=== PATIENT | female | born 1970 | race Caucasian/White ===

== ENCOUNTER → 2017-07-07 08:26 | Outpatient (CLI) | payer OTHER, SELFPAY ==
[2017-07-07 10:44] LABS: Albumin, Serum 3.8 g/dL (3.4-5.0); BUN 15 mg/dL (7-18); BUN/Creat Ratio 16.3 RATIO (10-20); Calcium,Total 8.6 mg/dL (8.5-10.1); Chloride 105 mmol/L (98-107); Creatinine, Serum 0.92 mg/dL (0.55-1.02); EST Glomerular Filtration Rate 70 mL/min (>60); Est Glom Filt Rate - Afr Amer 84 mL/min (>60); Glucose 84 mg/dL (70-110); Phosphorus 2.3 mg/dL (2.5-4.9); Potassium 4.2 mmol/L (3.5-5.1); Sodium Level 139 mmol/L (136-145)
[2017-07-07 10:49] LABS: Protein, Urine (Random) < 6.0 mg/dL (<11.9)
== END ==
PROVIDERS: Family Provider Family Medicine; PCP Family Medicine; Visit Provider Internal Medicine Nephrology
DX: N18.2 Chronic kidney disease, stage 2 (mild) (principal)
CPT/HCPCS: 36415; 80069; 82570; 84156

== ENCOUNTER → 2017-09-25 09:40 | Outpatient (CLI) | payer OTHER, SELFPAY ==
--- NOTE | 2017-09-25 09:43 | BI_ITS ---
MAMMOGRAPHY - BILATERAL DIAGNOSTIC REASON FOR EXAM: Female, 47 years old. 2 week history of the right breast lump and tenderness at the 6:00 position of the breast. PERTINENT HISTORY: Non-contributory. TECHNIQUE: Digital bilateral breast tenisha (3D mammographic acquisition) in the CC and MLO projections. 2-D mediolateral oblique (MLO) and craniocaudad (CC) views of both breasts were obtained. CAD: Full Field Digital Mammography with Computer Added Detection was performed. Compression spot views of the right breast were obtained as well. COMPARISON: Comparison is made with prior mammogram dated July 14, 2016 and June 26, 2015. FINDINGS: Breast Composition: The breasts are extremely dense, which lowers the sensitivity of mammography. Several well-defined nodular densities are once again seen in both breasts. These have decreased in size. The palpable abnormality in the right breast corresponds to a 1.2 cm x 1.5 cm well-defined nodular density. Correlation with ultrasound is recommended. No other significant abnormalities are identified. BI/DIAG MAMM W/CAD, BILAT IMPRESSION: Persistent well-defined bilateral breast nodules as described. Correlation with ultrasound of the right breast is recommended. ASSESSMENT CATEGORY: BIRADS Category 0: Incomplete. Need additional imaging evaluation. A letter regarding these results will be sent to the patient by the facility within 30 days. Approximately 10% of breast cancers are not detected by mammography. A normal mammogram should not delay biopsy of a clinically suspicious abnormality. Electronically Signed: Chito Gutierrez MD at 11:11 EDT Tel [phone], Service support ,
--- NOTE | 2017-09-25 09:44 | US_ITS ---
STUDY: ULTRASOUND BREAST - RIGHT REASON FOR EXAM: Female, 47 years old. 2 week history of right breast lump. TECHNIQUE: Axial and longitudinal images of the RIGHT breast were performed with a high resolution ultrasound transducer. COMPARISON: Comparison is made with prior mammogram dated September 25, 2017 and prior sonogram of the right breast dated January 16, 2017. FINDINGS: RIGHT Breast: 2 cysts are seen at the 7:00 position of breast adjacent to the nipple. The larger measures 1.2 sides by 1.1 cm x 1 cm. This has decreased in size as compared to prior study. US/Breast Limited Unilateral IMPRESSION: Interval decrease in size, right periareolar cysts. ASSESSMENT CATEGORY: BIRADS Category 2: Benign. A letter regarding these results will be sent to the patient by the facility within 30 days. Electronically Signed: Chito Gutierrez MD at 11:09 EDT Tel [phone], Service support ,
== END ==
PROVIDERS: Family Provider Family Medicine; PCP Family Medicine; Visit Provider Obstetrics & Gynecology Gynecology
DX: N63.0 Unspecified lump in unspecified breast (principal)
CPT/HCPCS: 76642; 77062; 77066; G0279

== ENCOUNTER → 2018-06-21 11:26 | Outpatient (CLI) | payer OTHER, SELFPAY ==
[2017-09-29 13:53] VITALS: BMI 21.1
[2018-06-21 12:57] LABS: Anion Gap 8 (5-15); BUN 13 mg/dL (7-18); BUN/Creat Ratio 14.3 RATIO (10-20); Calcium,Total 8.3 mg/dL (8.5-10.1); Chloride 103 mmol/L (98-107); Creatinine, Serum 0.91 mg/dL (0.55-1.02); EST Glomerular Filtration Rate 70 mL/min (>60); Est Glom Filt Rate - Afr Amer 85 mL/min (>60); Glucose 82 mg/dL (74-106); Sodium Level 140 mmol/L (136-145)
[2018-06-21 13:16] LABS: Microalbumin,Random Urine < 5.0 mg/L (NO RANGE EST.)
== END ==
PROVIDERS: Family Provider Family Medicine; PCP Family Medicine; Referring Provider Internal Medicine Nephrology; Visit Provider Internal Medicine Nephrology
DX: N18.2 Chronic kidney disease, stage 2 (mild) (principal)
CPT/HCPCS: 36415; 80048; 82043; 82570

== ENCOUNTER → 2019-01-15 16:57 | Outpatient (CLI) | payer OTHER, SELFPAY ==
[2017-09-29 13:53] VITALS: BMI 21.1
--- NOTE | 2019-01-15 17:00 | RAD_ITS ---
STUDY: X-RAY - LEFT KNEE REASON FOR EXAM: Female, 48 years old. Pain TECHNIQUE: 4 view(s) of the knee. COMPARISON: None. FINDINGS: There is no evidence of fracture or dislocation. Mild tricompartmental degenerative changes are present. Chondrocalcinosis is present. There are no radiodense foreign bodies. RAD/Knee 4 or More Views IMPRESSION: No fracture or dislocation. Mild tricompartmental degenerative changes. Chondrocalcinosis. Electronically Signed: Sheldon Rajput, at 17:15 EDT Tel , Service support ,
== END ==
PROVIDERS: Family Provider Family Medicine; PCP Family Medicine; Referring Provider Family Medicine; Visit Provider Family Medicine
DX: M25.562 Pain in left knee (principal)
CPT/HCPCS: 73564

== ENCOUNTER → 2019-06-17 08:14 | Outpatient (CLI) | payer OTHER, SELFPAY ==
[2017-09-29 13:53] VITALS: BMI 21.1
[2019-06-17 10:15] LABS: Hematocrit 40.1 % (37-47); Hemoglobin 12.6 g/dL (12.0-15.0); Mean Corp Hgb Conc 31.4 g/dL (32-36); Mean Corpuscular Hgb 28.2 pg (27.0-32.0); Mean Corpuscular Volume 89.7 fL (81-99); Mean Platelet Vol. 11.1 fl (6.2-12.0); Platelet Count 205 K/mm3 (150-450); RBC Distribution Width CV 12.8 % (11.6-14.6); RBC Distribution Width SD 41.9 fl (35.1-43.9); Red Blood Count 4.47 M/mm3 (4.2-5.4); White Blood Count 4.8 K/mm3 (4.4-11.0)
[2019-06-17 10:28] LABS: Creatinine, Urine (random) < 13.00 mg/dL (NO RANGE EST.); Protein, Urine (Random) < 6.0 mg/dL (<11.9)
[2019-06-17 10:37] LABS: Albumin, Serum 3.5 g/dL (3.2-5.0); BUN 14 mg/dL (7-18); BUN/Creat Ratio 14.4 RATIO (10-20); Calcium,Total 8.2 mg/dL (8.5-10.1); Chloride 106 mmol/L (98-107); Creatinine, Serum 0.98 mg/dL (0.55-1.02); EST Glomerular Filtration Rate 65 mL/min (>60); Est Glom Filt Rate - Afr Amer 78 mL/min (>60); Glucose 82 mg/dL (74-106); Potassium 3.9 mmol/L (3.5-5.1); Sodium Level 140 mmol/L (136-145)
[2019-06-17 10:39] LABS: PTHIN 45.4 pg/mL (18.4-80.1)
[2019-06-17 10:42] LABS: Vitamin D,25 Hydroxy 22.8 ng/mL (29.95-100.01)
== END ==
PROVIDERS: Family Provider Family Medicine; PCP Family Medicine; Referring Provider Physician Assistant Medical; Visit Provider Physician Assistant Medical
DX: N18.2 Chronic kidney disease, stage 2 (mild) (principal); D63.1 Anemia in chronic kidney disease
CPT/HCPCS: 36415; 80069; 82306; 82570; 83970; 84156; 85027

== ENCOUNTER → 2019-06-18 06:58 | Outpatient (CLI) | payer OTHER, SELFPAY ==
--- NOTE | 2019-06-18 07:00 | BI_ITS ---
MAMMOGRAPHY - BILATERAL SCREENING 3-D TOMOSYNTHESIS REASON FOR EXAM: Female, 48 years old. BILAT SCREENING - NO FAM HX - BILAT CYST ASPIRATIONS 2018 AFTER LAST MAMM OF 09/2017 PERTINENT HISTORY: No significant family history. TECHNIQUE: 2-D mammograms and 3-D Tomosynthesis of the breast (s) were performed. CAD was performed. COMPARISON: September 25, 2017. FINDINGS: The breast composition is heterogeneously dense that can obscure small breast masses. There is a 2.1 cm, ovoid mass within the upper lateral right breast centered 4.6 cm from the nipple base on MLO views and centered 3.5 cm from the nipple base on MLO views. The margins appear well-defined except for the obscured by adjacent fibroglandular tissue. Immediately deep to this dominant finding is a satellite nodule measuring 6.6 mm in maximum dimension. Recommend characterization of both of these right breast findings with sonography. The left breast appears stable without evidence of malignancy. There are no suspicious microcalcifications. BI/SCREEN MAMM (CAD) W/[place] BILAT IMPRESSION: Right breast masses/nodules as above. ASSESSMENT CATEGORY: BIRADS Category 0: Incomplete. Need additional imaging evaluation as above. A letter regarding these results will be sent to the patient by the facility within 30 days. FOLLOW UP RECOMMENDATION: Ultrasound Recommended. (I) Approximately 10% of breast cancers are not detected by mammography. A normal mammogram should not delay biopsy of a clinically suspicious abnormality. Electronically Signed: Chester Elliott MD at 9:34 EST , Service support ,
== END ==
PROVIDERS: Family Provider Family Medicine; PCP Family Medicine; Referring Provider Obstetrics & Gynecology Gynecology; Visit Provider Obstetrics & Gynecology Gynecology
DX: Z12.31 Encounter for screening mammogram for malignant neoplasm of breast (principal)
CPT/HCPCS: 77063; 77067

== ENCOUNTER → 2019-06-21 07:55 | Outpatient (CLI) | payer OTHER, SELFPAY ==
--- NOTE | 2019-06-21 08:01 | US_ITS ---
STUDY: ULTRASOUND BREAST - RIGHT REASON FOR EXAM: Female, 48 years old. Abnormal mammography. 2.1 cm ovoid mass within the upper lateral right breast and 6.6 mm maximum dimension satellite nodule identified on bilateral mammography dated June 18, 2019. TECHNIQUE: Axial and longitudinal images of the RIGHT breast were performed with a high resolution ultrasound transducer. # OF IMAGES: 24 COMPARISON: None. FINDINGS: RIGHT Breast: There is an anechoic focus measuring 1.9 x 1.8 x 1.3 cm in the 10:00 right breast position identified 5 cm from the nipple base. This finding is wider than it is tall. The margins appear well-defined. There is enhanced true transmission without posterior shadowing. This finding probably represents the mammographically evident abnormality. In the 11:00 position of the right breast 5 cm from the nipple there is a 1.2 x 1.1 x 0.7 cm ovoid, hypoechoic solid mass with no enhanced through transmission and no posterior shadowing. This finding is avascular. The margins appear well-defined. This finding is wider than it is tall. There is a 1.5 x 1.5 x 0.7 cm anechoic well-defined focus in the right breast 1:00 position 1 cm from the nipple. There is enhanced through transmission. There is no posterior shadowing. In the right breast 10:00 position identified 7 cm from the nipple there is a 0.7 x 0.6 x 0.4 cm hypoechoic solid focus with posterior shadowing. The margins appear somewhat microlobulated. This lesion is as wide as it is tall. US/Breast Complete Unilateral IMPRESSION: Prominent simple cysts within the right breast 10:00 position 5 cm from the nipple and 1:00 position 1 cm from the nipple. Probably benign fibroadenoma within the 11:00 position right breast 5 cm from the nipple. Suspicious subcentimeter finding in the right breast 10:00 position 7 cm from the nipple. Recommend further evaluation with ultrasound-guided core biopsy. ASSESSMENT CATEGORY: BIRADS Category 4A: Low suspicion for malignancy. A letter regarding these results will be sent to the patient by the facility within 30 days. Electronically Signed: Chester Elliott MD at 16:16 EST , Service support ,
== END ==
PROVIDERS: Family Provider Family Medicine; PCP Family Medicine; Referring Provider Obstetrics & Gynecology Gynecology; Visit Provider Obstetrics & Gynecology Gynecology
DX: R92.8 Other abnormal and inconclusive findings on diagnostic imaging of breast (principal)
CPT/HCPCS: 76641

== ENCOUNTER → 2019-07-01 12:17 | Outpatient (CLI) | payer OTHER, SELFPAY ==
--- NOTE | 2019-07-01 | IMM_PTH ---
PATIENT: YOSELIN BAILEY LOC: [facility] U#:[id number] AGE/SX: 54/F ROOM: RE07/01/[address]: Dr. Carlos Enrique Dasilva MD : 1970 BED: DIS: SPEC #: [id number] RECD: 07/02/19 12:56 STATUS: ZAINA REQ #: [id number] JANEL: 07/01/19 00:[address]: Carlos Enrique Dasilva DEPT: IMMUNOHISTOCHEMISTRY RECD BY: Magi Antonio ENTERED: 07/02/19 12:56 SP TYPE: IMMUNO OTHR DR: Dr. Garcia Tripp MD Tissues: Right breast, NOS Procedures: Calponin-1(initial) P40 (add) PHYSICIAN & INSTITUTION [facility] [id number] SPECIMEN INFORMATION: Tissue Source: Right breast 11 o'clock +5 Clinical Info: Abnormal breast ultrasound Specimen Number: [id number] CPT code: 25793, 47458 METHODOLOGY: Deparaffinized sections of prefer/formalin-fixed tissue or PAP/DQ stained slides are incubated with monoclonal/polyclonal antibodies/oligonucleotide probes. Localization is made via biotin free immunoperoxidase method. Appropriate controls are performed and reacted as expected. Results on target cell population are indicated in the following table: RESULTS: ANTIBODY / CLONE RESULT P40 (BC28) positive Calponin-1 (YE067M) positive These tests were developed and their performance characteristics determined by [facility]. They may not have been cleared or approved by the U.S. Food and Drug Administration. The FDA has determined that such clearance or approval is not necessary. The above immunohistochemical/dualISH markers are ordered and reviewed by the Pathologist. INTERPRETATION: Right breast 11 o'clock +5, core biopsy: Negative for malignancy. SJ:bettie 07/03/19
[2019-07-01 07:54] VITALS: BMI 21.1
--- NOTE | 2019-07-01 10:19 | BRBX_PTH ---
PATIENT: YOSELIN BAILEY LOC: [facility] U#:[id number] AGE/SX: 54/F ROOM: RE07/01/[address]: Dr. Carlos Enrique Dasilva MD : 1970 BED: DIS: SPEC #: [id number] RECD: 07/01/19 11:53 STATUS: ZAINA REAGAN #: [id number] JANEL: 07/01/19 10:[address]: Carlos Enrique Dasilva DEPT: SURGICAL PATHOLOGY RECD BY: Michael Morales ENTERED: 07/01/19 13:03 SP TYPE: BREAST BX OTHR DR: Dr. Garcia Tripp MD Tissues: Right breast, NOS Procedures: Surgery Specimen Level IV HEADER OPERATION: Right breast core biopsy PRE-OP DIAGNOSIS: Abnormal breast ultrasound TISSUE SUBMITTED: Right breast tissue 11 o'clock +5 MICROSCOPIC DIAGNOSIS Right breast 11 o'clock +5, core biopsy: Fragments of benign breast tissue with focal dense fibrosis. Negative for atypia or malignancy. See comment. RONNA:bettie 07/02/19 COMMENT Immunohistochemistry ([id number]) supports the above diagnosis. Correlation with clinical, radiologic findings and appropriate follow up are necessary. MICROSCOPIC DESCRIPTION Slides are reviewed. GROSS DESCRIPTION Received in fixative is one container labeled with the patient's name and designated right breast. The specimen consists of two pieces of zavala-yellow fibroadipose tissue measuring in aggregate 0.5 x 0.2 x 0.1 cm. The specimen is totally submitted in one cassette. / RONNA:bettie 07/01/19 TC:5 CPT: 72743
== END ==
PROVIDERS: Family Provider Family Medicine; PCP Family Medicine; Referring Provider Surgery; Visit Provider Surgery
DX: R92.8 Other abnormal and inconclusive findings on diagnostic imaging of breast (principal)
CPT/HCPCS: 88305; 88341; 88342

== ENCOUNTER → 2019-12-31 08:48 | Outpatient (CLI) | payer OTHER, SELFPAY ==
[2019-07-01 07:54] VITALS: BMI 21.1
--- NOTE | 2019-12-31 08:49 | BI_ITS ---
MAMMOGRAPHY - UNILATERAL DIAGNOSTIC: RIGHT BREAST REASON FOR EXAM: Female, 49 years old. Six-month follow-up for right ultrasound-guided breast biopsy. PERTINENT HISTORY: Non-contributory. TECHNIQUE: Digital unilateral breast tenisha (3D mammographic acquisition) in the CC and MLO projections. 2-D mediolateral oblique (MLO) and craniocaudad (CC) views of both breasts were obtained. CAD: Full Field Digital Mammography with Computer Added Detection was performed. COMPARISON: Comparison is made with prior examination dated June 18, 2019 and September 25, 2017. FINDINGS: Breast Composition: The breasts are extremely dense, which lowers the sensitivity of mammography. There are no dominant masses or suspicious calcifications. The previously seen ovoid nodular density in the right breast is not seen at this time. A tissue clip marker is seen in the slightly upper retroareolar region of the right breast. No other significant abnormalities are identified. BI/DIAG MAMM W/CAD, UNILAT IMPRESSION: Stable unilateral diagnostic mammogram. One year follow-up mammogram recommended. (A) ASSESSMENT CATEGORY: BIRADS Category 2: Benign. A letter regarding these results will be sent to the patient by the facility within 30 days. Approximately 10% of breast cancers are not detected by mammography. A normal mammogram should not delay biopsy of a clinically suspicious abnormality. Electronically Signed: Chito Gutierrez, at 10:33 EDT , Service support ,
--- NOTE | 2019-12-31 08:49 | US_ITS ---
STUDY: ULTRASOUND BREAST - RIGHT REASON FOR EXAM: Female, 49 years old. Follow-up for right breast biopsy. TECHNIQUE: Axial and longitudinal images of the RIGHT breast were performed with a high resolution ultrasound transducer. # OF IMAGES: 23 COMPARISON: Comparison is made with prior mammogram done earlier in the day as well as prior ultrasound of the right breast dated June 21, 2019. FINDINGS: RIGHT Breast: 1 cm x 1 cm x 0.6 cm cyst at the 10:00 position of the breast and 5 cm from the nipple. This has decreased in size as compared to prior study. 9 mm x 10 mm x 5 mm ovoid hypoechoic solid nodule is seen at the 11:00 position the breast at 5 cm from nipple. At the 10:00 position of the breast at 7 cm from the nipple, there is a 5 mm x 5 mm x 3 mm hypoechoic solid nodule. This is unchanged. At the 10:00 position of the breast at 5 cm from nipple, there is a 1 cm x 1 cm by 0.6 cm cyst. IMPRESSION: Stable examination. Electronically Signed: Chito Gutierrez, at 13:58 EDT , Service support , US/Breast Limited Unilateral
== END ==
PROVIDERS: PCP Family Medicine; Referring Provider Surgery; Visit Provider Surgery
DX: Z12.31 Encounter for screening mammogram for malignant neoplasm of breast (principal); N63.11 Unspecified lump in the right breast, upper outer quadrant; N60.11 Diffuse cystic mastopathy of right breast; Z98.890 Other specified postprocedural states
CPT/HCPCS: 76641; 76642; 77061; 77063; 77065; 77067; G0279

== ENCOUNTER → 2020-07-10 09:51 | Outpatient (CLI) | payer OTHER, SELFPAY ==
[2020-01-03 06:05] VITALS: BMI 21.1
[2020-07-10 12:25] LABS: Hematocrit 42.8 % (37-47); Hemoglobin 13.4 g/dL (12.0-15.0); Mean Corp Hgb Conc 31.3 g/dL (32-36); Mean Corpuscular Hgb 28.6 pg (27.0-32.0); Mean Corpuscular Volume 91.5 fL (81-99); Mean Platelet Vol. 10.6 fl (6.2-12.0); Platelet Count 252 K/mm3 (150-450); RBC Distribution Width CV 12.4 % (11.6-14.6); RBC Distribution Width SD 41.9 fl (35.1-43.9); Red Blood Count 4.68 M/mm3 (4.2-5.4); White Blood Count 5.6 K/mm3 (4.4-11.0)
[2020-07-10 12:44] LABS: Albumin, Serum 3.7 g/dL (3.2-5.0); BUN 15 mg/dL (7-18); BUN/Creat Ratio 15.5 RATIO (10-20); Calcium,Total 8.4 mg/dL (8.5-10.1); Chloride 104 mmol/L (98-107); Creatinine, Serum 0.97 mg/dL (0.55-1.02); EST Glomerular Filtration Rate 65 mL/min (>60); Est Glom Filt Rate - Afr Amer 78 mL/min (>60); Glucose 95 mg/dL (74-106); Phosphorus 2.6 mg/dL (2.5-4.9); Potassium 4.5 mmol/L (3.5-5.1); Sodium Level 136 mmol/L (136-145)
[2020-07-10 12:46] LABS: PTHIN 56.1 pg/mL (18.4-80.1)
[2020-07-10 12:51] LABS: Vitamin D,25 Hydroxy 65.6 ng/mL
[2020-07-10 13:13] LABS: Protein, Urine (Random) < 6.0 mg/dL (<11.9)
== END ==
PROVIDERS: PCP Family Medicine; Referring Provider Internal Medicine Nephrology; Visit Provider Internal Medicine Nephrology
DX: N18.2 Chronic kidney disease, stage 2 (mild) (principal); D63.1 Anemia in chronic kidney disease; E55.9 Vitamin D deficiency, unspecified
CPT/HCPCS: 36415; 80069; 82306; 82570; 83970; 84156; 85027

== ENCOUNTER → 2020-11-12 09:01 | Outpatient (CLI) | payer OTHER, SELFPAY ==
[2020-01-03 06:05] VITALS: BMI 21.1
--- NOTE | 2020-11-12 09:04 | BI_ITS ---
MAMMOGRAPHY - BILATERAL DIAGNOSTIC REASON FOR EXAM: Female, 50 years old. 2 month history of left breast lump. PERTINENT HISTORY: Non-contributory. TECHNIQUE: Digital bilateral breast tenisha (3D mammographic acquisition) in the CC and MLO projections. 2-D mediolateral oblique (MLO) and craniocaudad (CC) views of both breasts were obtained. CAD: Full Field Digital Mammography with Computer Added Detection was performed. COMPARISON: Comparison is made with prior study dated 06/18/2019 and 09/26/2007. FINDINGS: Breast Composition: The breasts are extremely dense, which lowers the sensitivity of mammography. The palpable abnormality corresponds to a 1.5 cm x 1.2 cm nodular density in the deep central portion of the left breast. This is new. Correlation with ultrasound is recommended. No other significant abnormalities are identified. BI/DIAG MAMM W/CAD, BILAT IMPRESSION: Mouth he corresponds to a 1.5 cm x 1.2 cm nodular density in the deep central portion of the left breast. Correlation with ultrasound is recommended. ASSESSMENT CATEGORY: BIRADS Category 0: Incomplete. Need additional imaging evaluation. A letter regarding these results will be sent to the patient by the facility within 30 days. Approximately 10% of breast cancers are not detected by mammography. A normal mammogram should not delay biopsy of a clinically suspicious abnormality. Electronically Signed: Chito Gutierrez MD at 10:17 EDT , Service support ,
--- NOTE | 2020-11-12 09:04 | US_ITS ---
STUDY: ULTRASOUND BREAST - LEFT REASON FOR EXAM: Female, 50 years old. Palpable lump in the right breast. TECHNIQUE: Axial and longitudinal images of the LEFT breast were performed with a high resolution ultrasound transducer. # OF IMAGES: 27 COMPARISON: Comparison is made with prior mammogram done earlier in the day. FINDINGS: LEFT Breast: The palpable abnormality corresponds to a 1.2 cm x 1.2 cm x 0.8 cm cyst. This is at the 4 o''clock position of the breast at 2 cm from nipple. There is a 7 mm x 8 mm x 6 mm hypoechoic nodule at the 4 o''clock position of the breast at 1 cm from the nipple. This is not a typical cyst. Low-level echoes are seen within it. Tissue diagnosis is recommended. US/Breast Limited Unilateral IMPRESSION: 1.2 cm x 1.2 cm x 0.8 cm cyst at the 4 o''clock position in the breast at 2 cm from nipple. 7 mm x 8 mm x 6 mm hypoechoic nodule with low level echoes within it at the 4 o''clock position breast than 1 cm from nipple. Tissue diagnosis is recommended. ASSESSMENT CATEGORY: BIRADS Category 4: Suspicious - Biopsy Should Be Considered. A letter regarding these results will be sent to the patient by the facility within 30 days. Electronically Signed: Chito Gutierrez MD at 10:36 EDT , Service support ,
== END ==
PROVIDERS: PCP Family Medicine; Referring Provider Obstetrics & Gynecology Gynecology; Visit Provider Obstetrics & Gynecology Gynecology
DX: N63.23 Unspecified lump in the left breast, lower outer quadrant (principal); N60.02 Solitary cyst of left breast
CPT/HCPCS: 76642; 77062; 77066; G0279

== ENCOUNTER 2021-02-24 17:00 | Outpatient (RCR) | payer OTHER, SELFPAY ==
[2020-11-27 07:51] VITALS: BMI 21.9
--- NOTE | 2021-01-18 14:54 | HP.PTEVAL_ITS ---
Patient's Visit Information YOSELIN GOLD is a 50 year old F referred to Physical Therapy by Dr. Albert Tripp MD with a diagnosis of L posteromedial meniscal tear. Date of Evaluation: 12/29/20 Physical Therapist: Júnior Noriega DPT - Visit Plan Frequency: 1x/Week Duration: 6 Weeks Plan: Start with progression of AROM and PROM of her L knee. Pt. as tolerated. Add in stability and strengthening exercises avoiding painful movements with deep squatting and lunging initially. - Subjective Pt. is here today for her initial evaluation with diagnosis of L posteromedial meniscal tear. Pt. reports she has been improving, but would like to get back to all of her running, cycling and dynamic exercise activities. 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 Pt. is not able to run or prolonged walking. Increases symptoms: walking, standing, twisting, stairs. Decreases pain: OTC meds, rest, ice. She has been using a brace which has helped a bit. She denies N/T in either LE. Pt. has no popping now and no giving out on her. She is hopeful to have decrease in symptoms allowing her to get back to all recreational activities including running and working out. - Pain L knee Pain Intensity (Out of 10): 2 Pain Intensity Range: 0, 5 - Objective POSTURE: Pt. has normal posture in stance. Pt. has slight lack of TKE on L knee in stance. Pt. has normal lumbar spine and normal hip positioning. PALPATION: Pt. has increased pain at medial joint line of L knee worse at posterior medial aspect. No HS pain, no MCL pain. NEURO: Pt. has normal sensation and DTR of BLEs. Pt. is able to rise on heels and toes without issues (no myotomal weakness noted.). ROM: R knee 0-0-136deg. L knee 0-3-118deg. Pt. has normal hip, HS and hip flexor ROM otherwise. MMT: RLE 5/5 throughout, except hip abd 4/5, hip ER 4/5, hip ext 4+/5. LLE: ankle 5/5 throughout; knee- ext 4+/5 flexon 4/5 mild increase NW; hip- flexion 5/5, abd 4/5, ext 4+/5, hip ER 4/5, hip IR 4/5. Core strength: fair. GAIT: PT. has slight antalgic pattern during L stance phase, lacking TKE during this phase as well as decreased knee flexion during swing phase. STAIRS: She tends to load RLE only with ascending and descending. Increased pain if she load LLE in both directions. - Goals Goal 1:: LTG: Pt. to be I with HEP. Goal Time Frame: 2-4 Weeks Goal 2:: STG: Pt. to achieve full L knee ROM without increase in symptoms. Goal Time Frame: 2 Weeks Goal 3:: LTG: pt. to have increased LLE strength to 5/5 throughout. Goal Time Frame: 2-4 Weeks Goal 4:: STG: pt. to be able to walk short community distances with 0-1/10 pain in L knee with improved gait mechanics. Goal Time Frame: 2-4 Weeks Goal 5:: LTG: Pt. to have normal gait mechanics without issues for unlimited distances. Goal Time Frame: 4-6 Weeks - Rehabilitation Potential Physical Therapy Diagnosis: Pt. has signs and symptoms consistent with L posteromedial meniscal tear. Pt. has marked LLE weakness with lack of TKE and end range flexion on her L knee. Pt. would benefit from PT to work on initial ROM progressing to strengthening to reduce stress at her meniscus Rehabilitation Potential: Excellent - Anticipated Interventions Patient/Client Instruction: Educate patient on: Condition, Plan of Care, Risk Factors, Benefits of Fitness Program For the Purpose of:: To foster healthy habits, To improve decision making, To facilitate caregiver knowledge, To improve self management, To prevent re- injury, To improve ability to perform tasks related to life management Therapeutic Exercise to Include: Strength training, Power training, Coordination, Body mechanics, Postural training, Passive ROM, Active ROM, Dynamic Lumbar Stabilization For the Purpose of:: To decrease pain, To decrease swelling/inflammation, To increase ROM, To improve nutrient delivery to tissue, To increase oxygenation perfusion, To improve muscle performance and motor function, To improve ability to perform ADL's, To improve gait and locomotor functions, To increase flexibility/ROM, To improve endurance Thank you for the opportunity to evaluate your patient. For Medicare and Medicare HMO plans, please review the plan of care and approve it. It will need to be FAXED BACK to us at [phone] for Medicare purposes. For Medicare only, by signing this I certify the plan of care. Please let me know if there are questions or concerns regarding this plan of care. Physician Signature: Date:
--- NOTE | 2021-05-24 10:14 | HP.PTDCSUM ---
It has been my pleasure to treat YOSELIN GOLD referred by Dr. Albert Tripp MD, with the diagnosis of L posteromedial meniscal tear for a total of 4 visit(s). Discharge Date: 02/24/21 Please see the following information for a summary of their discharge status. Subjective: Pt. reports overall doing well, reports 50% better. She is still having some issues with running, but is able to run ~2 miles before having to stop. L knee Pain Intensity (Out of 10): 0 % Improvement: 50 Objective/Function: Pt. has decent ROM. She does have increased symptoms with running and jogging. She has good strength. Her hip strength has improved and tolerance to all running. She is hopeful to continue with strengthening. She has good ROM, close to full knee flexion, mild increase NW. Full knee extension. Pt. has 5/5 strength throughout knee flexion/extension. 4/5 hip abd and 4/5 hip extension Goal 1:: LTG: Pt. to be I with HEP. Goal Progress: Goal Met Goal 2:: STG: Pt. to achieve full L knee ROM without increase in symptoms. Goal Progress: Goal Met Goal 3:: LTG: pt. to have increased LLE strength to 5/5 throughout. Goal Progress: Goal Met Goal 4:: STG: pt. to be able to walk short community distances with 0-1/10 pain in L knee with improved gait mechanics. Goal Progress: Progressing Goal 5:: LTG: Pt. to have normal gait mechanics without issues for unlimited distances. Goal Progress: Progressing Plan: Pt. to be DC to HEP at this point in time with focus on glute strengthening and slowly progressing back to running as tolerated. Discharge Comments: Pt. will be DC from PT this date. Pt. is to focus on LE/core strengthening ang progressing to walking/running as tolerated. Pt. is I with HEP at this point in time. If there are questions or concerns regarding this patient's physical therapy, please feel free to call me at [phone]. Thank you for the referral of this patient. Sincerely, Júnior Pedraza Sipos, DPT Balance/Gait/Functional tests - Balance/Special Test Scores Lower Extremity Functional Score: 71
== END 2021-02-24 19:00 | disposition home or self-care (01) ==
LOC: PT 17:00
PROVIDERS: PCP Family Medicine; Referring Provider Family Medicine; Visit Provider Family Medicine
DX: S83.242D Other tear of medial meniscus, current injury, left knee, subsequent encounter (principal); X58.XXXD Exposure to other specified factors, subsequent encounter
CPT/HCPCS: 97110; 97161

== ENCOUNTER 2021-07-16 08:43 | Outpatient (CLI) | payer OTHER, SELFPAY ==
[2021-07-16 09:50] LABS: Hematocrit 44.7 % (37-47); Hemoglobin 14.2 g/dL (12.0-15.0); Mean Corp Hgb Conc 31.8 g/dL (32-36); Mean Corpuscular Hgb 28.4 pg (27.0-32.0); Mean Corpuscular Volume 89.4 fL (81-99); Mean Platelet Vol. 10.4 fl (6.2-12.0); Platelet Count 259 K/mm3 (150-450); RBC Distribution Width CV 12.4 % (11.6-14.6); RBC Distribution Width SD 40.6 fl (35.1-43.9); White Blood Count 5.3 K/mm3 (4.4-11.0)
[2021-07-16 10:02] LABS: Protein, Urine (Random) < 6.0 mg/dL (<11.9)
[2021-07-16 10:04] LABS: Albumin, Serum 4.1 g/dL (3.2-5.0); BUN 15 mg/dL (7-18); BUN/Creat Ratio 14.4 RATIO (10-20); Calcium,Total 9.1 mg/dL (8.5-10.1); Chloride 103 mmol/L (98-107); Creatinine, Serum 1.04 mg/dL (0.55-1.02); EST Glomerular Filtration Rate 59 mL/min (>60); Est Glom Filt Rate - Afr Amer 72 mL/min (>60); Glucose 81 mg/dL (74-106); Phosphorus 2.7 mg/dL (2.5-4.9); Sodium Level 136 mmol/L (136-145)
[2021-07-16 10:08] LABS: Vitamin D,25 Hydroxy 89.1 ng/mL
== END 2021-07-16 23:59 | disposition short-term general hospital (02) ==
LOC: MTLAB 08:44
PROVIDERS: PCP Family Medicine; Referring Provider Internal Medicine Nephrology; Visit Provider Internal Medicine Nephrology
DX: N18.2 Chronic kidney disease, stage 2 (mild) (principal); E55.9 Vitamin D deficiency, unspecified; D63.1 Anemia in chronic kidney disease
CPT/HCPCS: 36415; 80069; 82306; 82570; 84156; 85027

== ENCOUNTER → 2022-06-02 | Outpatient (CLI) | payer OTHER, SELFPAY ==
--- NOTE | 2022-06-02 12:41 | MRI_ITS ---
STUDY: BILATERAL BREAST MR WITHOUT AND WITH CONTRAST REASON FOR EXAM: Female, 51 years old. History of right palpable abnormality and right breast cysts by ultrasound. Recent left breast ultrasound showing hypoechoic nodule at the 4:00 position. Workup of this finding. TECHNIQUE: Multi-sequence multi-echo imaging of both breasts was performed with a dedicated breast coil. T1-weighted and T2-weighted images were performed before the administration of contrast. T1-weighted images were also performed after the intravenous administration of 12mL of CLARISCAN contrast. COMPARISON: Bilateral mammograms dated June 18, 2019, December 31, 2019 and November 12, 2020. Left breast ultrasound dated November 12, 2020. FINDINGS: RIGHT BREAST: The breasts are heterogenously dense which may obscure small masses, with moderate background enhancement. There are no abnormal enhancing masses or areas of non-mass enhancement in the right breast. LEFT BREAST: The breasts are heterogenously dense which may obscure small masses, with moderate background enhancement. There are no abnormal enhancing masses or areas of non-mass enhancement in the left breast corresponding to the ultrasonographic findings. There are no enlarged or abnormal lymph nodes. There is no abnormality in the visualized regions of the chest or liver. MRI/Breast Bilateral W/O and W IMPRESSION: Moderate background enhancement in both breasts. No enhancing lesions corresponding to the left ultrasonographic findings. A six-month follow-up diagnostic left mammogram and left breast ultrasound would be appropriate, given these lack of findings. CATEGORY: BIRADS Category 3: Probably Benign - Short-Interval Follow-up Suggested. A letter regarding these results will be sent to the patient by the facility within 30 days. Electronically Signed: Alexander Polanco, at 13:45 EST ,
== END | disposition home or self-care (01) ==
PROVIDERS: PCP Family Medicine; Referring Provider Obstetrics & Gynecology Gynecology; Visit Provider Obstetrics & Gynecology Gynecology
DX: R92.2 Inconclusive mammogram (principal)
CPT/HCPCS: 77049; A9575; A4216; C8908

== ENCOUNTER → 2022-09-08 | Outpatient (CLI) | payer OTHER, SELFPAY ==
[2022-09-08 18:11] LABS: Hematocrit 41.3 % (37-47); Mean Corp Hgb Conc 31.5 g/dL (32-36); Mean Corpuscular Hgb 28.9 pg (27.0-32.0); Mean Corpuscular Volume 91.8 fL (81-99); Mean Platelet Vol. 10.7 fl (6.2-12.0); Platelet Count 246 K/mm3 (150-450); RBC Distribution Width CV 12.3 % (11.6-14.6); RBC Distribution Width SD 41.6 fl (35.1-43.9); White Blood Count 8.1 K/mm3 (4.4-11.0)
[2022-09-08 18:44] LABS: Vitamin D,25 Hydroxy 54.3 ng/mL
[2022-09-08 18:47] LABS: Albumin, Serum 3.8 g/dL (3.2-5.0); BUN 15 mg/dL (7-18); BUN/Creat Ratio 16.4 RATIO (10-20); Calcium,Total 8.7 mg/dL (8.5-10.1); Chloride 107 mmol/L (98-107); Creatinine, Serum 0.92 mg/dL (0.55-1.02); EST Glomerular Filtration Rate 68 mL/min (>60); Est Glom Filt Rate - Afr Amer 83 mL/min (>60); Glucose 77 mg/dL (74-106); Phosphorus 2.7 mg/dL (2.5-4.9); Potassium 3.7 mmol/L (3.5-5.1); Sodium Level 140 mmol/L (136-145)
[2022-09-08 18:50] LABS: Protein, Urine (Random) 9.8 mg/dL (<11.9); Protein:Creat Ratio 90 mg/g CRE (0-200)
[2022-09-09 07:32] LABS: PTHIN 67.7 pg/mL (18.4-80.1)
== END | disposition home or self-care (01) ==
PROVIDERS: PCP Family Medicine; Referring Provider Internal Medicine Nephrology; Visit Provider Internal Medicine Nephrology
DX: N18.2 Chronic kidney disease, stage 2 (mild) (principal); E55.9 Vitamin D deficiency, unspecified; D63.1 Anemia in chronic kidney disease
CPT/HCPCS: 36415; 80069; 82306; 82570; 83970; 84156; 85027

== ENCOUNTER 2023-02-06 07:57 | Day surgery (SDC) | payer OTHER, SELFPAY ==
--- NOTE | 2023-02-06 08:05 | HP.PCM_ITS ---
[facility] - General General Date of Service: 02/06/23 [facility] Narrative YOSELIN GOLD, is a 52 F who presents for a screening colonoscopy. Patient never had previous colonoscopy. Patient Nuys any family history of colon cancer. Patient denies any current abdominal pain/nausea/vomiting/reflux. Patient has bowel movements daily denies any blood. [facility] Medical History (Updated 02/02/23 @ 16:19 by Elsa Quijano) Abnormal mammogram of right breast Abnormal mammogram of right breast Abnormal ultrasound of breast Alcohol use Breast mass, right Non-smoker Post-menopausal Solitary right kidney Wears contact lenses Wears glasses Home Medications estradiol 0.045 mg-levonorgestrel 0.015 mg/24hr weekly transderm patch 1 patch transdermal QWEEK 12/23/22 [History Last Taken Unknown] multivitamin 1 tab PO DAILY 12/23/22 [History Last Taken Unknown] turmeric 400 mg capsule 400 mg PO DAILY 12/23/22 [History Last Taken Unknown] calcium carbonate 600 mg calcium (1,500 mg) tablet (Calcium) 1,200 mg PO DAILY 02/02/23 [History Last Taken Unknown] Allergy/AdvReac Type Severity Reaction Status Date / Time No Known Allergies Allergy Verified 02/06/23 08:09 Family History Father Cancer Skin Cancer Kidney disease Sister Kidney disease Grandfather Kidney disease Surgical History (Updated 02/02/23 @ 16:11 by Elsa Quijano) History of endometrial ablation History of kidney donation Social History Smoking Status: Never smoker second hand exposure: No alcohol intake: current alcohol intake frequency: a few times a month substance use type: does not use caffeine: Yes what type of physical activity do you participate in: none frequency: does not exercise seatbelt use: always Past Medical/Surgical History Planned Operation Planned Operative Procedure/s: COLONOSCOPY Previous Hospitalizations/Surgeries HX Hospitalizations: No Any Problems With Anesthesia: No You/Your Family Experience Fever (Hyperthermia) With Anes: No Cholinesterase deficiency: No Cardiovascular Hx Hypertension: No Respiratory Hx Sleep Apnea: No Hx Respiratory Tract Infection/Cold (presently): No Do You Snore Loudly (louder than talking or can be heard): No Do You Often Feel Tired/ Fatigued/ Sleepy Dring Daytime?: No Has Anyone Observed You Stop Breathing During Sleep?: No Result (for STOP score): Negative Smoking Status: Never smoker Neurological Does patient have nerve stimulator: No Reproduction : No Allergies No Known Allergies Allergy (Verified 02/06/23 08:09) Discharge Is Pt Admitted From a Skilled Nursing, or a [facility]ci: No Who Could Help: FAMILY After D/C, Where Do you Plan to Go: Return Home Physical Exam Const alert, oriented x3 and no apparent distress HEENT normocephalic and head/scalp atraumatic Resp normal respiratory effort Cardio regular rate GI soft to palpation and non-tender; Negative for non-distended Palpation: Negative for guarding Extremity no clubbing, cyanosis or edema Neuro CN's II-XII intact bilaterally Psych mental status grossly normal Assessment & Plan Assessment/Plan (1) Encounter for screening for malignant neoplasm of colon: Surgery Risks - Colonoscopy I discussed with the patient the risks of the procedure: Yes Risks Include but are not Limited To: Risks include but are not limited to: Bleeding, perforation requiring further surgery, inability to complete colonoscopy requiring barium enema.
[2023-02-06] MEDS: Lactated Ringers 1,000 ML 15 ML IV (08:22)
[2023-02-06 08:23] VITALS: BP 108/70; PULSE 81; RESP 16; TEMP 36.4; O2SAT 100; BMI 21.0
--- NOTE | 2023-02-06 09:00 | COL_PTH ---
PATIENT: YOSELIN BAILEY LOC: EN U#:[id number] AGE/SX: 52/F ROOM: RE02/06/[address]: Dr. Peri Hudson MD : 1970 BED: DIS: 02/06/2023 SPEC #: [id number] RECD: 02/06/23 12:59 STATUS: ZAINA RERocky #: [id number] JANEL: 02/06/23 09:[address]: Peri Hudson DEPT: SURGICAL PATHOLOGY RECD BY: Shanta Marks ENTERED: 02/06/23 13:25 SP TYPE: COLON OTHR DR: Dr. Garcia Tripp MD Tissues: Colon, NOS Procedures: Surgery Specimen Level V HEADER OPERATION: Colonoscopy - open access (MAC), polypectomy PRE-OP DIAGNOSIS: Screening TISSUE SUBMITTED: Colon polyp descending MICROSCOPIC DIAGNOSIS Descending colon polyp, biopsy: Fragments of hyperplastic polyp. AM:bettie 02/07/2023 MICROSCOPIC DESCRIPTION Slides are reviewed. GROSS DESCRIPTION Received in fixative is one container labeled with the patient's name and designated descending colon polyp. The specimen consists of multiple irregular fragments of light zavala soft tissue that in aggregate measure 1.0 x 0.5 x 0.1 cm. The specimen is totally submitted in one cassette. / AM:bettie 02/06/2023 TC:5 CPT: 64926
[2023-02-06 09:26] VITALS: BP 108/70; BP 96/57; PULSE 86; RESP 18; TEMP 36.2; O2SAT 99
--- NOTE | 2023-02-06 09:27 | OP.CCLET_ITS ---
02/06/2023 Albert Tripp [address] [place] [address] Re : Colonoscopy procedure for Angelina Rolando Riley Dear Dr. Tripp This procedure was performed on Monday, February 06, 2023. My impressions and recommendations are as follows: Impressions : - Hemorrhoids found on perianal exam. - Non-bleeding internal hemorrhoids. - Diverticulosis in the sigmoid colon. - One less than 5 mm polyp in the descending colon, removed with a hot snare. Resected and retrieved. Biopsied. Recommendations : - Await pathology results. - Repeat colonoscopy in 5 years for surveillance based on pathology results. - Discharge patient to home. - High fiber diet. - Continue present medications. My findings are described in the full procedure note, which is enclosed. If I can be of further assistance, please feel free to contact me at Doctor phone number(s): , Work: . Sincerely, MD Peri Blevins MD 02/06/2023 9:27:19 AM This report has been signed electronically.
--- NOTE | 2023-02-06 09:27 | OP.COLON_ITS ---
Patient Name: Angelina Riley Procedure Date: 02/06/2023 8:43 AM Date of : 1970 Age: 52 Procedure: Colonoscopy Indications: Screening for colorectal malignant neoplasm Providers: Peri Hudson MD Referring MD: Albert Tripp Medicines: Monitored Anesthesia Care Patient Profile: This is a 52 year old female. Last Colonoscopy: none. The patient's first colonoscopy is today. Complications: No immediate complications. Procedure: Pre-Anesthesia Assessment: - Prior to the procedure, a History and Physical was performed, and patient medications and allergies were reviewed. The patient's tolerance of previous anesthesia was also reviewed. The risks and benefits of the procedure and the sedation options and risks were discussed with the patient. All questions were answered, and informed consent was obtained. Prior Anticoagulants: The patient has taken no anticoagulant or antiplatelet agents. ASA Grade Assessment: Per anesthesia. After reviewing the risks and benefits, the patient was deemed in satisfactory condition to undergo the procedure. After I obtained informed consent, the scope was passed under direct vision. Throughout the procedure, the patient's blood pressure, pulse, and oxygen saturations were monitored continuously. The Colonoscope was introduced through the anus and advanced to the cecum, identified by the appendiceal orifice, ileocecal valve and palpation. The colonoscopy was performed without difficulty. The patient tolerated the procedure well. The quality of the bowel preparation was good. Scope In: 8:57:40 AM Scope Withdrawal Time 0 hours 14 minutes 16 seconds Scope Out: 9:18:21 AM Total Procedure Duration Time 0 hours 20 minutes 41 seconds Findings: Hemorrhoids were found on perianal exam. Non-bleeding internal hemorrhoids were found. The hemorrhoids were Grade I (internal hemorrhoids that do not prolapse). A few small-mouthed diverticula were found in the sigmoid colon. A less than 5 mm polyp was found in the descending colon. The polyp was sessile. The polyp was removed with a hot snare. Resection and retrieval were complete. Biopsies were taken with a cold forceps for histology. Impression: - Hemorrhoids found on perianal exam. - Non-bleeding internal hemorrhoids. - Diverticulosis in the sigmoid colon. - One less than 5 mm polyp in the descending colon, removed with a hot snare. Resected and retrieved. Biopsied. Recommendation: - Await pathology results. - Repeat colonoscopy in 5 years for surveillance based on pathology results. - Discharge patient to home. - High fiber diet. - Continue present medications. Procedure Code(s): --- Professional --- 42427, PT, Colonoscopy, flexible; with removal of tumor(s), polyp(s), or other lesion(s) by snare technique Diagnosis Code(s): --- Professional --- Z12.11, Encounter for screening for malignant neoplasm of colon K64.0, First degree hemorrhoids D12.4, Benign neoplasm of descending colon K57.30, Diverticulosis of large intestine without perforation or abscess without bleeding CPT copyright 2021 [employer]. All rights reserved. The codes documented in this report are preliminary and upon engraver steel plate review may be revised to meet current compliance requirements. MD Peri Blevins MD 02/06/2023 9:27:19 AM This report has been signed electronically. Number of Addenda: 0 Note Initiated On: 02/06/2023 8:43 AM
[2023-02-06 09:30] VITALS: BP 108/70; BP 90/58; PULSE 80; RESP 16; O2SAT 96
[2023-02-06 09:35] VITALS: BP 108/70; BP 93/58; PULSE 78; RESP 16; O2SAT 100
[2023-02-06 09:41] VITALS: BP 104/64; BP 108/70; PULSE 70; RESP 16; TEMP 36.4; O2SAT 100
[2023-02-06 09:56] VITALS: BP 108/70
== END 2023-02-06 10:19 | disposition home or self-care (01) ==
LOC: EN 07:57 → AC 07:58
PROVIDERS: PCP Family Medicine; Referring Provider Family Medicine; Visit Provider Surgery
PROC: 0DJD8ZZ Inspection of Lower Intestinal Tract, Via Natural or Artificial Opening Endoscopic (ICD-10-PCS; CPT 45378; principal; 2023-02-06 08:55)
DX: Z12.11 Encounter for screening for malignant neoplasm of colon (principal); D12.4 Benign neoplasm of descending colon; K64.0 First degree hemorrhoids; K57.30 Diverticulosis of large intestine without perforation or abscess without bleeding; Z52.4 Kidney donor; Z90.5 Acquired absence of kidney; Z80.0 Family history of malignant neoplasm of digestive organs
CPT/HCPCS: 45385; 88307; J7120; J2405

== ENCOUNTER → 2023-08-25 | Outpatient (CLI) | payer OTHER, SELFPAY ==
--- NOTE | 2023-08-25 08:01 | BI_ITS ---
MAMMOGRAPHY - BILATERAL SCREENING 3-D TOMOSYNTHESIS REASON FOR EXAM: Female, 53 years old. SCREEN PERTINENT HISTORY: No significant family history. TECHNIQUE: 2-D mammograms and 3-D Tomosynthesis of the breast (s) were performed. CAD was performed. COMPARISON: 06/18/2019 FINDINGS: The breast composition is Extermely dense tissue. Scattered benign calcifications are seen. No dense spiculated masses or suspicious microcalcifications are identified. No architectural distortion is identified. There is no skin thickening or retraction. There has been no significant change since the prior study. BI/SCRN MAMM (CAD)W/HALEIGH BILAT IMPRESSION: No mammographic signs of malignancy. Routine yearly mammograms recommended. ASSESSMENT CATEGORY: BIRADS Category 1: Negative. A letter regarding these results will be sent to the patient by the facility within 30 days. FOLLOW UP RECOMMENDATION: Yearly follow up mammogram recommended. (A) Approximately 10% of breast cancers are not detected by mammography. A normal mammogram should not delay biopsy of a clinically suspicious abnormality. Electronically Signed: Rob Gayle MD at 13:26 EST ,
--- OUTSIDE RECORDS SUMMARY | 2023-08-25 08:10 | XMS RPT_ITS | CCD ---
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 Name Role Phone PHYSICIAN, NONE Primary Care Physician Unavailab cathleen ADAM MD, JOEY Attending Unavailable PHYSICIAN, NONE Primary Care Unavailable YOANDY YOUNG Attending Unavail able PHYSICIAN, NONE Primary Care Unavailable Medications Current Medications Medication Drug Class(es) Dates Sig (Normalized) Sig (Original) 168 hr estradiol 0.37268 mg/hr transdermal system (1 source) Estrogen Start: 10-14-2022 Climara 0.05 mg/24 hours weekly transdermal film, extended release Apply 1 patch(es), Topical, qWeek, # 4 patch(es), 11 Refill(s), ALYCIA, Pharmacy: [facility]/pharmacy #[id number], 168, cm, 08/22/22 11:38:00 EST, Height, 63.7 Start Date: 10/14/22 Status: Ordered Fish Oils (3 sources) Start: 03-22-2022 take 1 dose by mouth once daily [place]-3 Fish Oil Dose : 1,000 mg =, Oral, qDay, 0 Refill(s) Start Date: 03/22/22 Status: Ordered Hair, Skin, Nails (2 sources) Start: 03-22-2022 take 5 mg by mouth once daily Hair, Skin, Nails 5 mg, Oral, qDay, 0 Refill(s) Start Date: 03/22/22 Status: Ordered magnesium oxide 250 mg oral tablet (3 sources) Start: 03-22-2022 Magnesium 250 mg tablet Dose : 500 mg = 2 tab(s), Oral, qDay, 0 Refill(s) Start Date: 03/22/22 Status: Ordered Multivitamin preparation (3 sources) Start: 03-22-2022 take 1 tablet by mouth once daily Multivitamin Dose = 1 tab(s), Oral, Daily, 0 Refill(s) Start Date: 03/22/22 Status: Ordered progesterone 100 mg oral capsule (2 sources) Progesterone Start: 08-22-2022 End: 05-24-2023 Prometrium 100 mg oral capsule Dose : 100 mg = 1 cap(s), Oral, qDay, X 90 day(s), # 90 cap(s), 1 Refill(s), 05/24/23 8:49:00 AM EST, Pharmacy: [facility]/pharmacy #[id number], Menopausal symptoms Renal donor, 168, cm, 11/25/22 8:31:00 EDT, Height Start Date: 11/25/22 Stop Date: 05/24/23 Status: Ordered turmeric extract 500 mg oral capsule (3 sources) Start: 03-22-2022 turmeric 500 mg oral capsule 0 Refill(s) Start Date: 03/22/22 Status: Ordered Problems Problem Classification Problem Date Documented Da te Episodic/Chronic Unclassified (3 sources) Donor of kidney for transplant (person) 03-22-2022 Unclassified (1 source) History of endometrial ablation 11-25-2022 Results Test Name Value Interpretation Reference Range Facil ity Encounters Encounter Date Encounter Type Care Provider Facility Start: 04-14-2023 End: 04-15-2023 ambulatory YOANDY PRADO Facility:B Start: 04-14-2023 End: 04-14-2023 Patient encounter procedure YOANDY PRADO [facility] Start: 09-12-2022 End: 09-13-2022 ambulatory JOEY ADAM MD Facility:B Start: 03-22-2022 End: 03-26-2022 Outreach Lab JOEY ADAM MD [facility] Start: 03-22-2022 End: 03-22-2022 Patient encounter procedure JOEY ADAM MD [facility] Procedures Date Procedure Procedure Detail Performing Clinician Arthroscopic knee operation JOEY ADAM MD Ligation of fallopian tube A DAVID ADAM MD Live donor nephrectomy HERLINDA ADAM MD Immunizations Immunization Date Immunization Notes Care Provider Fa cility 07-20-2021 SARS-CoV-2 (COVID-19 ) mRNA-1273 vaccine YOANDY HEATH 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 ASSISTANT-ETL DATA ARCHITECT [facility] 11-12-2020 SARS-CoV-2 (COVID-19 ) mRNA-1273 vaccine YOANDY HEATH CERTIFIED 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 ASSISTANT-ETL DATA ARCHITECT [facility] 10-15-2020 SARS-CoV-2 (COVID-19 ) mRNA-1273 vaccine YOANDY HEATH CERTIFIED 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 ASSISTANT-ETL DATA ARCHITECT [facility] Payers Date Payer Category Payer Unknown [id number] 1970 Unknown [id number] 1970 Unknown [id number] Social History Date Type Detail Facility Start: 03-22-2022 Tobacco smoking status Never s moked tobacco (finding) [facility] Services Sex Assigned At Female [facility] Clinical Notes 03-22-2022 to 03-25-2022 LaboratoryRadiologyRadiology Note Date & Type Note Facility 03-25-2022 Note This Pap Test was successfully processed and evaluated with the assistance of the [employer] System. [facility] 03-25-2022 Note This Pap Test was successfully processed and evaluated with the assistance of the [employer] [facility] System. [facility] 03-25-2022 Note This Pap Test was successfully processed and evaluated with the assistance of the [employer] [facility] System. [facility] 03-25-2022 Note This Pap Test was successfully processed and evaluated with the assistance of the [employer] [facility] System. [facility] 03-25-2022 Note This Pap Test was successfully processed and evaluated with the assistance of the [employer] [facility] System. [facility] 03-25-2022 Note This Pap Test was successfully processed and evaluated with the assistance of the [employer] [facility] System. [facility] 03-25-2022 Note This Pap Test was successfully processed and evaluated with the assistance of the [employer] [facility] System. [facility] 03-25-2022 Note This Pap Test was successfully processed and evaluated with the assistance of the [employer] [facility] System. [facility] 03-22-2022 Evaluation + Plan note Future Scheduled TestsPathology Bone Tender Request 03/22/22MA Mammo Screening Bilateral w/ Kun 03/22/22MRI Breast w/o Contrast Bilateral 03/22/22 [facility] Evaluation + Plan note Future Appointments Appointment Date:04/18/2023 09:30:00 AM Scheduled Provider:JOEY ADAM MD Location[facility] Appointment Type: OV Future Scheduled TestsMRI Breast w/ + w/o Contrast Bilateral 04/19/22 [facility] Hospital course Narrative No data available for this section [facility] Hospital Discharge instructions No data available for this section [facility] Progress note No data available for this section [facility] Summary Purpose Family History No Family History Records Found Advance Directives No Advanced Directives Records Found Additional Source Comments Care Team (unrecognized sect ion and content) Care Team Related Persons Name: ANGELICA GOLD Address: Home [address] [place], [place] [id number] Patient Care team informatio n (unrecognized section and content) Care Team Personnel Name: PHYSICIAN, NONE Position: Physician Member Role: Primary Care Physician Care Team Related Persons Name: ANGELICA GOLD Address: [address] [facility] [place] [place] [id number] INFORMATION SOURCE (unrecogn ized section and content) FOR RECORDS PERTAINING TO PATIENTS WHO ARE OR HAVE BEEN ENROLLED IN A CHEMICAL DEPENDENCY/SUBSTANCEABUSE PROGRAM, SOME INFORMATION MAY BE OMITTED. This clinical summary was aggregated from multiple sources. Caution should be exercised in using it in the provision of clinical care. This summary normalizes information from multiple sources, and as a consequence, information in this document may materially change the coding, format and clinical context of patient data. In addition, data may be omitted in some cases. CLINICAL DECISIONS SHOULD BE BASED ON THE PRIMARY CLINICAL RECORDS. [employer] [facility]. provides no warranty or guarantee of the accuracy or completeness of information in this document.
== END | disposition home or self-care (01) ==
LOC: OPBI 08:00
PROVIDERS: PCP Family Medicine; Referring Provider Obstetrics & Gynecology Gynecology; Visit Provider Obstetrics & Gynecology Gynecology
DX: Z12.31 Encounter for screening mammogram for malignant neoplasm of breast (principal)
CPT/HCPCS: 77063; 77067

== ENCOUNTER → 2024-06-03 | Outpatient (CLI) | payer OTHER, SELFPAY ==
[2024-06-03 10:03] LABS: Hematocrit 39.5 % (37-47); Hemoglobin 12.5 g/dL (12.0-15.0); Mean Corp Hgb Conc 31.6 g/dL (32-36); Mean Corpuscular Hgb 28.9 pg (27.0-32.0); Mean Corpuscular Volume 91.2 fL (81-99); Mean Platelet Vol. 10.2 fl (6.2-12.0); Platelet Count 240 K/mm3 (150-450); RBC Distribution Width CV 12.8 % (11.6-14.6); RBC Distribution Width SD 42.6 fl (35.1-43.9); Red Blood Count 4.33 M/mm3 (4.2-5.4); White Blood Count 6.1 K/mm3 (4.4-11.0)
[2024-06-03 11:18] LABS: Anion Gap 6 (5-15); BUN 21 mg/dL (7-18); BUN/Creat Ratio 23.7 RATIO (10-20); Calcium,Total 8.6 mg/dL (8.5-10.1); Chloride 105 mmol/L (98-107); Creatinine, Serum 0.89 mg/dL (0.55-1.02); EST Glomerular Filtration Rate 71 mL/min (>60); Est Glom Filt Rate - Afr Amer 86 mL/min (>60); Glucose 88 mg/dL (74-106); Potassium 3.7 mmol/L (3.5-5.1); Sodium Level 136 mmol/L (136-145)
[2024-06-03 18:40] LABS: Vitamin D,25 Hydroxy 43.9 ng/mL
== END | disposition home or self-care (01) ==
PROVIDERS: PCP Family Medicine; Referring Provider Family Medicine; Visit Provider Family Medicine
DX: Z13.29 Encounter for screening for other suspected endocrine disorder (principal); N95.9 Unspecified menopausal and perimenopausal disorder; Z90.5 Acquired absence of kidney; E55.9 Vitamin D deficiency, unspecified
CPT/HCPCS: 36415; 80048; 82306; 84403; 84443; 85027

== ENCOUNTER → 2024-09-27 | Outpatient (CLI) | payer OTHER, SELFPAY ==
--- NOTE | 2024-09-27 12:17 | BI_ITS ---
EXAM: SCRN MAMM (CAD)W/HALEIGH BILAT DATE: 09/27/2024 CLINICAL HISTORY: F, Age 54 y/o , SCREENING BREAST CANCER RISK ASSESSMENT: Has not been calculated. TECHNIQUE: Bilateral screening digital breast tomosynthesis with 2D and 3D images. Computer aided detection. COMPARISON: Prior exam(s) dated 08/25/2023 and 06/02/2022. FINDINGS: TISSUE DENSITY: The breast tissue is extremely dense which lowers the sensitivity of mammography. Bilateral Breast Mammographic Findings: There are no suspicious masses, suspicious clustered microcalcifications, architectural distortion or secondary signs of malignancy identified in either breast. Benign-appearing round microcalcifications are seen in both breasts. A radiopaque clip is seen in the right breast. The biopsy was benign. Post biopsy site is stable. BI/SCRN MAMM (CAD)W/HALEIGH BILAT IMPRESSION: Right Breast: BIRADS 2 BENIGN FINDING. Left Breast: BIRADS 2 BENIGN FINDING. OVERALL FINAL ASSESSMENT: BIRADS 2 BENIGN FINDING RECOMMENDATION: Routine annual follow-up in 1 Year A letter with findings and recommendations will be mailed to the patient. Reading Location: [id number]
== END | disposition home or self-care (01) ==
LOC: OPBI 12:15
PROVIDERS: PCP Family Medicine; Referring Provider Obstetrics & Gynecology Gynecology; Visit Provider Obstetrics & Gynecology Gynecology
DX: Z12.31 Encounter for screening mammogram for malignant neoplasm of breast (principal)
CPT/HCPCS: 77063; 77067

== ENCOUNTER → 2024-10-08 | Outpatient (CLI) | payer OTHER, SELFPAY ==
[2024-10-08 18:38] LABS: Estradiol 58.6 pg/mL
== END | disposition home or self-care (01) ==
PROVIDERS: PCP Family Medicine; Referring Provider Obstetrics & Gynecology Gynecology; Visit Provider Obstetrics & Gynecology Gynecology
DX: N95.1 Menopausal and female climacteric states (principal)
CPT/HCPCS: 36415; 82670

== ENCOUNTER → 2024-10-11 | Outpatient (CLI) | payer OTHER, SELFPAY ==
[2024-10-11 18:22] LABS: Estradiol 53.7 pg/mL
== END | disposition home or self-care (01) ==
LOC: MTLAB 16:15
PROVIDERS: PCP Family Medicine; Referring Provider Obstetrics & Gynecology Gynecology; Visit Provider Obstetrics & Gynecology Gynecology
DX: N95.1 Menopausal and female climacteric states (principal)
CPT/HCPCS: 36415; 82670

== ENCOUNTER → 2025-03-04 | Outpatient (CLI) | payer OTHER, SELFPAY ==
[2025-03-04 17:58] LABS: Hematocrit 39.8 % (37-47); Hemoglobin 13.1 g/dL (12.0-15.0); Immature Granulocytes Count 0.020 X10^3/uL (0.0-0.0); Mean Corp Hgb Conc 32.9 g/dL (32-36); Mean Corpuscular Volume 89.4 fL (81-99); Mean Platelet Vol. 10.7 fl (6.2-12.0); NRBC Flagged by Analyzer 0 % (0-5); Platelet Count 237 K/mm3 (150-450); RBC Distribution Width CV 12.2 % (11.6-14.6); RBC Distribution Width SD 40.0 fl (35.1-43.9); Red Blood Count 4.45 M/mm3 (4.2-5.4); White Blood Count 7.9 K/mm3 (4.4-11.0)
[2025-03-04 18:46] LABS: AST(SGOT) 25 U/L (<=31); Alanine Aminotransfer ALT/SGPT 19 U/L (<=34); Albumin, Serum 4.2 g/dL (3.5-5.0); Alkaline Phosphatase 53 U/L (35-104); Anion Gap 11 (5-15); BUN 15 mg/dL (4-19); BUN/Creat Ratio 15.6 RATIO (10-20); CORTISOL PM 9.96 ug/dL (2.68-10.50); Calcium,Total 9.1 mg/dL (7.6-11.0); Carbon Dioxide 24.8 mmol/L (21.0-32.0); Chloride 104 mmol/L (98-108); Cholesterol 204 mg/dL (<=200); Ferritin 77 ng/mL (22-378); Globulin 2.8 g/dL (2.2-4.2); Glucose 81 mg/dL (70-99); Low Density Lipoprotein Calc. 121 mg/dL; Potassium 4.0 mmol/L (3.3-5.1); Triglycerides 55 mg/dL; Very Low Density Lipoprotein 11 mg/dL (5-40); Vitamin B12 1007 pg/mL (180-914); Vitamin D,25 Hydroxy 76.0 ng/mL (30-100); cholesterol:hdl ratio screen 2.82
[2025-03-04 18:49] LABS: CRP < 3.00 mg/L (0.0-3.0)
[2025-03-04 19:26] LABS: Iron 89 ug/dL (50-170)
--- OUTSIDE RECORDS SUMMARY | 2025-03-04 22:34 | XMS RPT_ITS | CCD ---
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 Albert Tripp Primary Care Provider Annika Sher Attending Provider Unavailable Dr. Albert Tripp Referring Provider Dr. Peri Hudson Attending Provider Dr. Peri Hudson Other Provider PHYSICIAN, NONE Primary Care Physician Unavailab le PHYSICIAN, NONE Primary Care Unavailable YOANDY YOUNG Attending Unavail able ANA ADAM MD Attending Unavailable PHYSICIAN, NONE Primary Care Unavailable Dr. Garcia Tripp MD Primary Care Provider Dr. Ana Adam MD Attending Provider [phone] Dr. Ana Adam MD Referring Provider Garcia Tripp Primary Care Unavailable Garcia Tripp Attending Unavailable Garcia Tripp Referring Unavailable Ana Adam Attending Unavailable Ana Adam Referring Unavailable Garcia Tripp Primary Care Unavailable Ana Adam Attending Unavailable Ana Adam Referring Unavailable Garcia Tripp Primary Care Unavailable Ana Adam Attending Unavailable Ana Adam Referring Unavailable Garcia Tripp Primary Care Unavailable Medications Current Medications Medication Drug Class(es) Dates Sig (Normalized) Sig (Original) calcium carbonate 1500 mg oral tablet (5 sources) Start: 02-02-2023 Calcium Carbonate (Calcium 600) 600 mg calcium (1,500 mg) tablet Active 1200 mg PO DAILY February 02, 2023 12:00am 168 hr estradiol 0.80748 mg/hr transdermal system (9 sources) Estrogen Start: 07-04-2023 Climara 0.05 mg/24 hours weekly transdermal film, extended release Apply 1 patch(es), Topical, qWeek, Sandoz brand preferred, # 12 patch(es), 3 Refill(s), Pharmacy: [facility]/pharmacy #[id number], 168, cm, 11/25/22 8:31:00 EDT, Height, 62.9, kg, 11/25/22 8:31:00 EDT, Dosing Weight Start Date: 07/04/23 Status: Ordered Start: 04-24-2023 End: 04-18-2024 Climara 0.075 mg/24 hours we ekly transdermal film, extended release Apply 1 patch(es), Topical, qWeek, # 12 patch(es), 3 Refill(s), ALYCIA, Pharmacy: [facility]/pharmacy #[id number], Postmenopausal bleeding S/P endometrial ablation, 168, cm, 09/08/23 8:40:00 EDT, Height, 64.9, kg, 09/08/23 8:40:00 EDT, Dosing Weight Start Date: 09/08/23 Status: Ordered Start: 02-06-2023 Estradiol 0.05 mg/24 hr patch weekly Active February 06, 2023 12:00am Start: 02-06-2023 Estradiol Acti ve February 06, 2023 12:00am Start: 10-14-2022 Climara 0.05 m g/24 hours weekly transdermal film, extended release Apply 1 patch(es), Topical, qWeek, # 4 patch(es), 11 Refill(s), ALYCIA, Pharmacy: [facility]/pharmacy #[id number], 168, cm, 08/22/22 11:38:00 EST, Height, 63.7 Start Date: 10/14/22 Status: Ordered 168 hr estradiol 0.02544 mg/hr / levonorgestrel 0.048470 mg/hr transdermal system (5 sources) Progestin, Estrogen, Progestin-containing Intrauterine Device Start: 12-23-2022 Estradiol-Levonorgestrel 0.045-0.015 mg/24 hr patch weekly Active 1 NMA TD EVERY WEEK December 23, 2022 12:00am Start: 12-23-2022 apply 1 dose transde rmal route every week Estradiol-Levonorgestrel Active 1 PATCH TD EVERY WEEK December 23, 2022 12:00am Fish Oils (4 sources) Start: 10-04-2022 take 1 dose by mouth once daily Patterson-3 Fish Oil Dose : 1,000 mg =, Oral, qDay, 0 Refill(s) Start Date: 03/22/22 Status: Ordered Hair, Skin, Nails (2 sources) Start: 03-22-2022 take 5 mg by mouth once daily Hair, Skin, Nails 5 mg, Oral, qDay, 0 Refill(s) Start Date: 03/22/22 Status: Ordered magnesium oxide 250 mg oral tablet (4 sources) Start: 03-22-2022 Magnesium 250 mg tablet Dose : 500 mg = 2 tab(s), Oral, qDay, 0 Refill(s) Start Date: 03/22/22 Status: Ordered Multivitamin preparation (6 sources) Start: 12-23-2022 take 1 tablet by mouth once daily Multivitamin Active 1 TABLET PO DAILY December 23, 2022 12:00am Start: 03-22-2022 take 1 tablet by casandra th once daily Multivitamin Dose = 1 tab(s), Oral, Daily, 0 Refill(s) Start Date: 03/22/22 Status: Ordered Multivitamin tablet (3 sources) Start: 12-23-2022 Multivitamin t ablet Active 1 {tbl} PO DAILY December 23, 2022 12:00am progesterone 200 mg oral capsule (9 sources) Progesterone Start: 09-08-2023 End: 10-08-2023 take 1 capsule by mouth once daily Prometrium 200 mg oral capsule Dose : 200 mg = 1 cap(s), Oral, qDay, short term use, will return to 100 mg daily after this., X 30 day(s), # 30 cap(s), 0 Refill(s), 10/08/23 9:46:00 AM EDT, Pharmacy: [facility]/pharmacy #[id number], Postmenopausal bleeding S/P endometrial ablation, 168, cm, 09/08/23 8:40:00 EDT, Height, kg, 09/08/23 8:40:00 EDT, Dosing Weight Start Date: 09/08/23 Stop Date: 10/08/23 Status: Ordered Start: 02-06-2023 Progesterone M icronized Active MG February 06, 2023 12:00am Start: 08-22-2022 End: 05-24-2023 Progesterone Micronized 100 mg capsule Active mg February 06, 2023 12:00am Turmeric extract (9 sources) Start: 12-23-2022 take 1 capsule by mo uth once daily Turmeric 400 mg capsule Active 400 mg PO DAILY December 23, 2022 12:00am Start: 12-23-2022 take 400 mg by mouth once zoya y Turmeric Active 400 MG PO DAILY December 23, 2022 12:00am Start: 03-22-2022 turmeric 500 m g oral capsule 0 Refill(s) Start Date: 03/22/22 Status: Ordered Problems Problem Classification Problem Date Documented Date Episodic/Chronic Menopausal disorders (3 sources) Postmenopausal bleeding; Translations: [Menopausal and female climacteric states] Onset: 09-08-2023 Chronic Nonmalignant breast conditions (6 sources) Breast lump; Translations: [Unspecified lump in the right breast, unspecified quadrant] 09-29-2017 Episodic Other screening for suspected conditions (not mental disorders or infectious disease) (20 sources) Ultrasonography of breast abnormal; Translations: [Other abnormal and inconclusive findings on diagnostic imaging of breast] Onset: 07-04-2024 07-01-2019 Episodic Residual codes; unclassified (2 sources) Other specified postprocedural states; Translations: [Other specified postprocedural states] Onset: 09-08-2023 Episodic Unclassified (4 sources) Donor of kidney for transplant (person) 03-22-2022 Unclassified (2 sources) History of endometrial ablation 11-25-2022 Results Test Name Value Interpretation Reference Range Facility E2 post dose follitropin [Ma ss/Vol]Ordered By: Ana Adam on 10-11-2024 Estradiol (E2) Level 53.7 pg/mL [facility] Comment on above: FEMALES ADULT FEMALE : Premenopausal: 15-350 pg/mL(E2 levels vary widely through the menstrual cycle) Postmenopausal: <10 pg/mL CORNELIO STAGES MEAN AGE REFERENCE RANGES Stage I(>14 days and prepubertal) 7.1 years Undetectable-20 pg/mLL Stage II 10.5 years Undetectable-24 pg/mL Stage III 11.6 years Undetectable-60 pg/mL Stage IV 12.3 years 15-85 pg/mL Stage V 14.5 years 15-350 pg/mL Puberty onset (transition from Cornelio stage I to Cornelio stage II) occurs for girls at a median age of 10.5 (/- 2) years. There is evidence that it may occur up to 1 year earlier in obese girls and in girls.Progression through Cornelio stages is variable. Cornelio stage V (adult) should be reached by age 18. Estradiolon 10-11-2024 ESTRADIOL 53.7 pg/mL Normal [facility] Comment on above: Result Comment: FEMA LES ADULT FEMALE: Premenopausal: 15-350 pg/mL(E2 levels vary widely through the menstrual cycle) Postmenopausal: <10 pg/mL CORNELIO STAGES MEAN AGE REFERENCE RANGES Stage I(>14 days and prepubertal) 7.1 years Undetectable-20 pg/mLL Stage II 10.5 years Undetectable-24 pg/mL Stage III 11.6 years Undetectable-60 pg/mL Stage IV 12.3 years 15-85 pg/mL Stage V 14.5 years 15-350 pg/mL Puberty onset (transition from Cornelio stage I to Cornelio stage II) occurs for girls at a median age of 10.5 (/- 2) years. There is evidence that it may occur up to 1 year earlier in obese girls and in girls. Progression through Cornelio stages is variable. Cornelio stage V (adult) should be reached by age 18. Performed By: #### L 3300.1750 #### [facility] [address] [place], [address] E2 post dose follitropin [Ma ss/Vol]Ordered By: Ana Adam on 10-08-2024 Estradiol (E2) Level 58.6 pg/mL [facility] Comment on above: FEMALES ADULT FEMALE : Premenopausal: 15-350 pg/mL(E2 levels vary widely through the menstrual cycle) Postmenopausal: <10 pg/mL CORNELIO STAGES MEAN AGE REFERENCE RANGES Stage I(>14 days and prepubertal) 7.1 years Undetectable-20 pg/mLL Stage II 10.5 years Undetectable-24 pg/mL Stage III 11.6 years Undetectable-60 pg/mL Stage IV 12.3 years 15-85 pg/mL Stage V 14.5 years 15-350 pg/mL Puberty onset (transition from Cornelio stage I to Cornelio stage II) occurs for girls at a median age of 10.5 (/- 2) years. There is evidence that it may occur up to 1 year earlier in obese girls and in girls.Progression through Cornelio stages is variable. Cornelio stage V (adult) should be reached by age 18. Estradiolon 10-08-2024 ESTRADIOL 58.6 pg/mL Normal [facility] Comment on above: Result Comment: FEMJesse LES ADULT FEMALE: Premenopausal: 15-350 pg/mL(E2 levels vary widely through the menstrual cycle) Postmenopausal: <10 pg/mL CORNELIO STAGES MEAN AGE REFERENCE RANGES Stage I(>14 days and prepubertal) 7.1 years Undetectable-20 pg/mLL Stage II 10.5 years Undetectable-24 pg/mL Stage III 11.6 years Undetectable-60 pg/mL Stage IV 12.3 years 15-85 pg/mL Stage V 14.5 years 15-350 pg/mL Puberty onset (transition from Cornelio stage I to Cornelio stage II) occurs for girls at a median age of 10.5 (/- 2) years. There is evidence that it may occur up to 1 year earlier in obese girls and in girls. Progression through Cornelio stages is variable. Cornelio stage V (adult) should be reached by age 18. Performed By: #### L 3300.1750 #### [facility] [address] [place], [place], [address] Breast imaging reportOrdered By: Janice Guajardo on 09-28-2024 Study report [facility] Services [address] [place], [place] [address] SCRN MAMM (CAD)W/KUN BILAT MR#: [id number] Acct: [id number] Name: MILTON ACEFELIXYOSELINREBECA MAYFIELD Rep #: [id number] : 1970 F 54 From: Seth Gujaardo DO PCP: Dr. Garcia Tripp MD Status: REG CLI Study:SCRN MAMM (CAD)W/KUN BILAT Date of Exa m: 09/27/24 Exam# [id number] Ordering Dr: Sri Adam MD EXAM: SCRN MAMM (CAD)W/KUN BILAT DATE: 09/27/2024 CLINICAL HISTORY: F, Age 54 y/o , SCREENING BREAST CANCER RISK ASSESSMENT: Has not been calculated. TECHNIQUE: Bilateral screening digital breast tomosynthesis with 2D and 3D images. Computeraided detection. COMPARISON: Prior exam(s) dated 08/25/2023 and 06/02/2022. FINDINGS: TISSUE DENSITY: The breast tissue is extremely dense which lowers the sensitivity of mammography. Bilateral Breast Mammographic Findings: There are no suspicious masses, suspicious clustered microcalcifications, architectural distortion or secondary signs of malignancy identified in either breast. Benign-appearing round microcalcifications are seen in both breasts. A radiopaque clip is seen in the right breast. The biopsy was benign. Post biopsy site is stable. BI/SCRN MAMM (CAD)W/KUN BILAT IMPRESSION: Right Breast: BIRADS 2 BENIGN FINDING. Left Breast: BIRADS 2 BENIGN FINDING. OVERALL FINAL ASSESSMENT: BIRADS 2 BENIGN FINDING RECOMMENDATION: Routine annual follow-up in 1 Year A letter with findings and recommendations will be mailed to the patient. Reading Location: [id number] CC: Dr. Ana Adam MD; Dr. Garcia Tripp MD ~ Packing Attendant: Signed [facility] SCRN MAMM (CAD)W/KUN BILATo n 09-27-2024 SCRN MAMM (CAD)W/KUN BILAT [facility] Imaging Services [address] [place], [place] [address] SCRN MAMM (CAD)W/KUN BILAT MR#: [id number] Acct: [id number] Name: YOSELIN BAILEY Rep #: [id number] : 1970 F 54 From: Janice Johnson PCP: Dr. Garcia Tripp MD Status: [facility] Study: SCRN MAMM (CAD)W/KUN BILAT Date of Exam: 09/17 07/13 Exam# [id number] Ordering Dr: Ana Adam MD EXAM: SCRN MAMM (CAD)W/KUN BILAT DATE: 09/27/2024 CLINICAL HISTORY: F, Age 54 y/o , SCREENING BREAST CANCER RISK ASSESSMENT: Has not been calculated. TECHNIQUE: Bilateral screening digital breast tomosynthesis with 2D and 3D images. Computer aided detection. COMPARISON: Prior exam(s) dated 08/25/2023 and 06/02/2022. FINDINGS: TISSUE DENSITY: The breast tissue is extremely dense which lowers the sensitivity of mammography. Bilateral Breast Mammographic Findings: There are no suspicious masses, suspicious clustered microcalcifications, architectural distortion or secondary signs of malignancy identified in either breast. Benign-appearing round microcalcifications are seen in both breasts. A radiopaque clip is seen in the right breast. The biopsy was benign. Post biopsy site is stable. BI/SCRN MAMM (CAD)W/KUN BILAT IMPRESSION: Right Breast: BIRADS 2 BENIGN FINDING. Left Breast: BIRADS 2 BENIGN FINDING. OVERALL FINAL ASSESSMENT: BIRADS 2 BENIGN FINDING RECOMMENDATION: Routine annual follow-up in 1 Year A letter with findings and recommendations will be mailed to the patient. Reading Location: [id number] CC: Dr. Ana Adam MD; Dr. aGrcia Tripp MD Packing Attendant: Signed Normal [facility] Basic Metabolic Profile (BMP )on 06-03-2024 BUN/CRE 23.7 RATIO High 10-20 [facility] Comment on above: Order Comment: Order Date: 06/03/24 Order Info: 0667-1 - BMP Order Info: 3016-3 - TSH Performed By: #### L 506.1000, L100.0500, L500.2500, L509.3000, L501.9520 #### [facility] [address] [place], [address] CA,Total 8.6 mg/dL Normal 8.5-10.1 [facility] Comment on above: Order Comment: Order Date: 06/03/24 Order Info: 0667-1 - BMP Order Info: 3016-3 - TSH Performed By: #### L 506.1000, L100.0500, L500.2500, L509.3000, L501.9520 #### [facility] [address] [place], [address] Chloride [Moles/Vol] 105 mmol/L Normal 98-107 [facility] Comment on above: Order Comment: Order Date: 06/03/24 Order Info: 0667-1 - BMP Order Info: 3 - TSH Performed By: #### L 506.1000, L100.0500, L500.2500, L509.3000, L501.9520 #### [facility] [address] [place], [address] CO2 [Moles/Vol] 25.0 mmol/L Normal 21.0-32.0 [facility] Comment on above: Order Comment: Order Date: 06/03/24 Order Info: 0667-1 - BMP Order Info: 3015-08 - TSH Performed By: #### L 506.1000, L100.0500, L500.2500, L509.3000, L501.9520 #### [facility] [address] [place], [address] Creatinine [Mass/Vol] 0.89 mg/dL Normal 0.55-1.02 [facility] Comment on above: Order Comment: Order Date: 06/03/24 Order Info: 0667-1 - BMP Order Info: 3015-08 - TSH Result Comment: The validity of the calculated GFR GFRAA in patients over 70 years has not been determined. Clinical correlation is essential. Performed By: #### L 506.1000, L100.0500, L500.2500, L509.3000, L501.9520 #### [facility] [address] [place], [address] EST GFR - AA 86 mL/min Normal >60 [facility] Comment on above: Order Comment: Order Date: 06/03/24 Order Info: 0667-1 - BMP Order Info: 3013 - TSH Result Comment: Afri can Haitian GFR Calc Performed By: #### L 506.1000, L100.0500, L500.2500, L509.3000, L501.9520 #### [facility] [address] [place], [address] GAP 6 Normal 5-15 [facility] Comment on above: Order Comment: Order Date: 06/03/24 Order Info: 06 - BMP Order Info: 3015-08 - TSH Performed By: #### L 506.1000, L100.0500, L500.2500, L509.3000, L501.9520 #### [facility] [address] [place], [address] GFR/1.73 sq M.predicted among non-blacks MDRD (S/P/Bld) [Vol rate/Area] 71 mL/min/{1.73_m2} Normal >60 [facility] Comment on above: Order Comment: Order Date: 06/03/24 Order Info: 666-06 - BMP Order Info: 3015-08 - TSH Result Comment: Non- GFR Calc Performed By: #### L 506.1000, L100.0500, L500.2500, L509.3000, L501.9520 #### [facility] [address] [place], [address] Glucose [Mass/Vol] 88 mg/dL Normal 74-106 [facility] Comment on above: Order Comment: Order Date: 06/03/24 Order Info: 06 - BMP Order Info: 3015-08 - TSH Performed By: #### L 506.1000, L100.0500, L500.2500, L509.3000, L501.9520 #### [facility] [address] [place], [address] Potassium [Moles/Vol] 3.7 mmol/L Normal 3.5-5.1 [facility] Comment on above: Order Comment: Order Date: 06/03/24 Order Info: 06- - BMP Order Info: 3015-08 - TSH Performed By: #### L 506.1000, L100.0500, L500.2500, L509.3000, L501.9520 #### [facility] [address] [place], [address] Sodium [Moles/Vol] 136 mmol/L Normal 136-145 [facility] Comment on above: Order Comment: Order Date: 06/03/24 Order Info: 0667-1 - BMP Order Info: 3016-3 - TSH Performed By: #### L 506.1000, L100.0500, L500.2500, L509.3000, L501.9520 #### [facility] [address] [place], [address] Urea nitrogen [Mass/Vol] 21 mg/dL High 7-18 [facility] Comment on above: Order Comment: Order Date: 06/03/24 Order Info: 0667-1 - BMP Order Info: 3016-3 - TSH Performed By: #### L 506.1000, L100.0500, L500.2500, L509.3000, L501.9520 #### [facility] [address] [place], [address] CBC-Complete Blood Cnt No Di ffon 06-03-2024 Erythrocyte distribution width (RBC) [Ratio] 12.8 % Normal 11.6-14.6 [facility] Comment on above: Order Comment: Order Date: 06/03/24 Order Info: [id number] - CBC Performed By: #### L 506.1000, L100.0500, L500.2500, L509.3000, L501.9520 #### [facility] [address] [place], [address] Hematocrit (Bld) [Volume fraction] 39.5 % Normal 37-47 [facility] Comment on above: Order Comment: Order Date: 06/03/24 Order Info: [id number] - CBC Performed By: #### L 506.1000, L100.0500, L500.2500, L509.3000, L501.9520 #### [facility] [address] [place], [address] Hemoglobin (Bld) [Mass/Vol] 12.5 g/dL Normal 12.0-15.0 [facility] Comment on above: Order Comment: Order Date: 06/03/24 Order Info: [id number] - CBC Performed By: #### L 506.1000, L100.0500, L500.2500, L509.3000, L501.9520 #### [facility] [address] [place], [address] MCH (RBC) [Entitic mass] 28.9 pg Normal 27.0-32.0 [facility] Comment on above: Order Comment: Order Date: 06/03/24 Order Info: [id number] - CBC Performed By: #### L 506.1000, L100.0500, L500.2500, L509.3000, L501.9520 #### [facility] [address] [place], [address] MCHC (RBC) [Mass/Vol] 31.6 g/dL Low 32-36 [facility] Comment on above: Order Comment: Order Date: 06/03/24 Order Info: [id number] - CBC Performed By: #### L 506.1000, L100.0500, L500.2500, L509.3000, L501.9520 #### [facility] [address] [place], [address] MCV (RBC) [Entitic vol] 91.2 fL Normal 81-99 [facility] Comment on above: Order Comment: Order Date: 06/03/24 Order Info: [id number] - CBC Performed By: #### L 506.1000, L100.0500, L500.2500, L509.3000, L501.9520 #### [facility] [address] [place], [address] Platelet mean volume (Bld) [Entitic vol] 10.2 fL Normal 6.2-12.0 [facility] Comment on above: Order Comment: Order Date: 06/03/24 Order Info: [id number] - CBC Performed By: #### L 506.1000, L100.0500, L500.2500, L509.3000, L501.9520 #### [facility] [address] [place], [address] Platelets (Bld) [#/Vol] 240 10*3/uL Normal 150-450 [facility] Comment on above: Order Comment: Order Date: 06/03/24 Order Info: [id number] - CBC Performed By: #### L 506.1000, L100.0500, L500.2500, L509.3000, L501.9520 #### [facility] [address] [place], [address] RBC (Bld) [#/Vol] 4.33 10*6/uL Normal 4.2-5.4 [facility] Comment on above: Order Comment: Order Date: 06/03/24 Order Info: [id number] - CBC Performed By: #### L 506.1000, L100.0500, L500.2500, L509.3000, L501.9520 #### [facility] [address] [place], [address] RDW SD 42.6 fl Normal 35.1-43.9 [facility] Comment on above: Order Comment: Order Date: 06/03/24 Order Info: [id number] - CBC Performed By: #### L 506.1000, L100.0500, L500.2500, L509.3000, L501.9520 #### [facility] [address] [place], [address] WBC (Bld) [#/Vol] 6.1 10*3/uL Normal 4.4-11.0 [facility] Comment on above: Order Comment: Order Date: 06/03/24 Order Info: [id number] - CBC Performed By: #### L 506.1000, L100.0500, L500.2500, L509.3000, L501.9520 #### [facility] [address] [place], [address] Testosterone, Serum Totalon 06-03-2024 Testosterone [Mass/Vol] 14.78 ng/dL Normal [facility] Comment on above: Order Comment: Order Date: 06/03/24 Order Info: [id number] - VITD25 Order Info: [id number] - SCOTT Result Comment: CENT RAL 90% REFERENCE RANGES MALE AGE <50 197.44 - 669.58 ng/dL MALE AGE > or = 50 187.72 - 684.19 ng/dL FEMALE AGE <50 8.38 - 35.01 ng/dL FEMALE AGE > or = 50 <7.00 - 35.92 ng/dL Effective as of 01/12/21 Performed By: #### L 506.1000, L100.0500, L500.2500, L509.3000, L501.9520 #### [facility] [address] [place], [place], [address] Thyroid Stim Hormone (TSH)on 06-03-2024 TSH 2.750 uIU/mL Normal 0.358-3.740 [facility] Comment on above: Order Comment: Order Date: 06/03/24 Order Info: 0667-1 - BMP Order Info: 3016-3 - TSH Performed By: #### L 506.1000, L100.0500, L500.2500, L509.3000, L501.9520 #### [facility] [address] [place], [place], [address] Vitamin D,25 Hydroxyon 06-03 Vitamin D 25-OH 43.9 ng/mL Normal [facility] Comment on above: Order Comment: Order Date: 06/03/24 Order Info: [id number] - VITD25 Order Info: [id number] - SCOTT Result Comment: Jo min D 25(OH) Status Range Deficiency <20 ng/mL (50nmol/L) Insufficiency 20 - 30 ng/mL (50 - 75 nmol/L) Sufficiency 30 - 100 ng/mL (75 - 250 nmol/L) Toxicity >100 ng/mL (>250 nmol/L) Performed By: #### L 506.1000, L100.0500, L500.2500, L509.3000, L501.9520 #### [facility] [place], [address] Final Surgical Pathology Rep wilbert 09-12-2023 Final Surgical Pathology Report . Pathology Reports Accession: Collected Date/Time: Received Date/Time: Pathologist: [id number] 09/08/2023 10:11 EDT 09/11/2023 08:42 EDT STAR VELA MD Final Surgical Pathology Report DIAGNOSIS: ENDOMETRIAL CURETTINGS: - PROLIFERATIVE ENDOMETRIUM - NEGATIVE FOR HYPERPLASIA OR MALIGNANCY CLINICAL INFORMATION: ABNORMAL BLEEDING PROCEDURE: ENDOMETRIAL BIOPSY PREOPERATIVE DIAGNOSIS: ABNORMAL BLEEDING POSTOPERATIVE DIAGNOSIS: SAME SPECIMEN: A ENDOMETRIUM GROSS DESCRIPTION: All parts labelled with patient name and [id number] Received in formalin labeled undesignated are multiple wispy white, mucinous and hemorrhagic tissue fragments aggregating 0.1 cm. TS-1 Janey Patterson, Grossing Shading Painter/ Dr. Zion Nolan, Pathologist Dictated by Janey Patterson MICROSCOPIC DESCRIPTION: The microscopic examination is performed, except in the case of Gross Only. Electronically Signed by Pathology Report verified by [facility] STAR VELA Sign out Date: 09/12/2023 09:13 Performing Lab: [facility], [address] [place] [address] Pathology Dept Disclaimer If ancillary studies were utilized, the following Laboratory Developed Test (LDT) disclaimer will apply: Under CLIA requirements, [facility] is qualified to perform high complexity testing. For all ancillary stains, positive and negative controls stain appropriately. Performance characteristics of immunohistochemical and chromogenic in-situ hybridization tests have been determined by [facility]. These tests are used for clinical purposes, They should not be regarded as investigational or for research. Normal [facility] ([place]) US PELVIS NON-OB W/TRANSVAGI NALon 04-17-2023 US PELVIS NON-OB W/TRANSVAGINAL ORIGINAL EXAMINATION: TRANSVAGINAL PELVIC [id number]/27/2023 8:22 am Ultrasound pelvis, transabdominal and transvaginal COMPARISON: Ultrasound 09/12/2022 HISTORY: ORDERING SYSTEM PROVIDED HISTORY: Reason for Exam: PMB. On HRT, FINDINGS: The uterus is 9.2 x 3.8 x 5.3 cm. There is heterogeneity of myometrium in the fundal region with a mildly echogenic central uterine mass suspected that is about 2 cm. There is obscuration of the endometrium in the fundal region on the transvaginal images. Endometrial stripe is best seen on the suprapubic images and is about 4.5 mm double wall thickness.. Right ovary: 2.2 x 1.5 x 2.1 cm. There is a 1.3 cm hemorrhagic cyst in the ovary. Left ovary: 1.6 x 1.2 x 1.6 cm. There is a 9 mm hypoechoic lesion in the ovary that is avascular with some internal echoes. There is blood flow in both ovaries. There is a simple appearing 1.6 cm right adnexal cyst that seems to be separate from the ovary. This is considered a benign finding requiring no follow-up imaging. IMPRESSION: Intramural uterine mass in the fundus is statistically likely to be fibroid although ultrasound cannot be histologically specific. Endometrial thickness is within normal limits. Bilateral ovarian hypoechoic lesions are favored to be hemorrhagic cysts. Simple appearing right para ovarian cystic lesion is considered a benign finding, no follow-up is indicated based on current guidelines. Interpreted by: Dre Bowie MD Preliminary Report By: Dre Bowie MD Electronically signed By Dre Bowie MD Dictated Date: 04/17/2023 10:57:48 AM Prelim Date: 04/17/2023 11:03:24 AM Sign Date: 04/17/2023 11:03:24 AM Ordering Provider: YOANDY HEATH [facility] ([place]) Basophil percentageOrdered B y: Dr. Gardiner on 09-08-2022 Basophil percentage 2.7 mg/dL 2.5-4.9 [place] [facility] Chloride [Moles/Vol] 107 mmol/L 98-[address] [facility] Glucose [Mass/Vol] 77 mg/dL 74-106 [facility] Potassium [Moles/Vol] 3.7 mmol/L 3.5-5.1 [facility] Sodium [Moles/Vol] 140 mmol/L 136-145 [facility] WBC (Bld) [#/Vol] 8.1 10*3/uL 4.4-11.0 [facility] Blood erythrocytes count (nu mber/volume)Ordered By: Dr. Gardiner on 09-08-2022 RBC (Bld) [#/Vol] 4.50 10*6/uL 4.2-5.4 [facility] Blood hemoglobin measurement (mass/volume)Ordered By: Dr. Gardiner on 09-08-2022 Hemoglobin (Bld) [Mass/Vol] 13.0 g/dL 12.0-15.0 [facility] Blood platelet mean volumeOr dered By: Dr. Gardiner on 09-08-2022 Platelet mean volume (Bld) [Entitic vol] 10.7 fL 6.2-12.0 [facility] Determination of erythrocyte mean corpuscular volume (MCV)Ordered By: Dr. Gardiner on 09-08-2022 MCV (RBC) [Entitic vol] 91.8 fL 81-99 [facility] Hematocrit Auto (Bld) [Volum e fraction]Ordered By: Dr. Gardiner on 09-08-2022 Hematocrit (Bld) [Volume fraction] 41.3 % 37-47 [facility] Laboratory - Chemistry and C hemistry - challengeOrdered By: Dr. Gardiner on 09-08-2022 CO2 [Moles/Vol] 28.0 mmol/L 21.0-32.0 [facility] Urea nitrogen/Creatinine [Mass ratio] 16.4 mg/mg 10-20 [facility] Laboratory - Hematology and Cell countsOrdered By: Dr. Gardiner on 09-08-2022 Erythrocyte distribution width (RBC) [Entitic vol] 41.6 fL 35.1-43.9 [facility] Erythrocyte distribution width (RBC) [Ratio] 12.3 % 11.6-14.6 [facility] MCH (RBC) [Entitic mass] 28.9 pg 27.0-32.0 [facility] MCHC Auto (RBC) [Mass/Vol]Or dered By: Dr. Gardiner on 09-08-2022 MCHC (RBC) [Mass/Vol] 31.5 g/dL 32-36 [facility] No Panel InformationOrdered By: Dr. Gardiner on 09-08-2022 Estimated GFR (MDRD) Amer 83 mL/min >60 [facility] Comment on above: GFR Calc Estimated GFR (MDRD) Non-Af Amer 68 mL/min >60 [facility] Comment on above: Non- GFR Calc Parathyroid Hormone (Intact) 67.7 pg/mL 18.4-80.1 [facility] Vitamin D 25-Hydroxy 54.3 ng/mL [facility] Comment on above: Vitamin D 25(OH) Sta tus Range Deficiency <20 ng/mL (50nmol/L) Insufficiency 20 - 30 ng/mL (50 - 75 nmol/L) Sufficiency 30 - 100 ng/mL (75 - 250 nmol/L) Toxicity >100 ng/mL (>250 nmol/L) Platelets bldOrdered By: Dr. Gardiner on 09-08-2022 Platelets (Bld) [#/Vol] 246 10*3/uL 150-450 [facility] Serum or plasma albumin romie urement (mass/volume)Ordered By: Dr. Gardiner on 09-08-2022 Albumin [Mass/Vol] 3.8 g/dL 3.2-5.0 [facility] Serum or plasma calcium romie urement (mass/volume)Ordered By: Dr. Gardiner on 09-08-2022 Calcium [Mass/Vol] 8.7 mg/dL 8.5-10.1 [facility] Serum or plasma creatinine m easurement (mass/volume)Ordered By: Dr. Gardiner on 09-08-2022 Creatinine [Mass/Vol] 0.92 mg/dL 0.55-1.02 [facility] Comment on above: The validity of the calculated GFR & GFRAA in patients over 70 years has not been determined. Clinical correlation is essential. Serum or plasma urea nitroge n measurement (mass/volume)Ordered By: Dr. Gardiner on 09-08-2022 Urea nitrogen [Mass/Vol] 15 mg/dL 7-18 [facility] Urine creatinine measurement (mass/volume)Ordered By: Dr. Gardiner on 09-08-2022 Creatinine (U) [Mass/Vol] 109.00 mg/dL NO RANGE EST. [facility] Urine protein measurement (m ass/volume)Ordered By: Dr. Gardiner on 09-08-2022 Protein (U) [Mass/Vol] 9.8 mg/dL 0.0-11.8 [facility] Urine protein/creatinine mas s ratioOrdered By: Dr. Gardiner on 09-08-2022 Protein/Creatinine (U) [Mass ratio] 90 mg/g CRE 0-200 [facility] LABORATORYOrdered By: [employer] on 03-22-2022 E2 [Mass/Vol] 21.97 pg/mL Invalid Interpretation Code ADM SS Follitropin Qn 129.9 m[IU]/mL Invalid Interpretation Code ADM SS Lutropin Qn 72.6 m[IU]/mL Invalid Interpretation Code ADM SS Testosterone [Mass/Vol] 16.84 ng/dL Invalid Interpretation Code ADM SS LABORATORYOrdered By: Yohannes Pringle on 03-22-2022 HPV Interp High Risk HPV Typing : NEGATIVEHPV types 16, 18, 31, 33, 35, 39, 45, 51, 52, 56, 58, 59, 66 and 68 DNA wereundetectable or below the pre-set threshold.The rashmi High-Risk HPV DNA Test is not intended for use as a screening device forPap normal women under age 30 and is not intended to substitute for regular Papscreening.The rashmi High-Risk HPV DNA Test is designed to augment existing methods for thedetection of cervical disease and should be used in conjunction with clinicalinformation derived from other diagnostic and screening tests, physical examinationsand full medical history in accordance with appropriate patient managementprocedures.N OTE: A negative result does not preclude the presence of HPV infection because resultsdepend on adequate specimen collection, absence of inhibitors and sufficientDNA to be detected. Invalid Interpretation Code See Interp HPVN Auto Viro/Sero SS Specimen source Nom (Unsp spec) Cervix (03/22/22 9:20 AM) Invalid Interpretation Code Auto Viro/Sero SS Vital Signs Date Time Vital Sign Value Performing Clinician Nildai eder 02-06-2023 09:41-0400 Body temperature 97.6 [degF] Dr. Albert Tripp Work Phone: [facility] 02-06-2023 09:41-0400 Diastolic blood pressure 64 mm[Hg] Dr. Albert Tripp Work Phone: [facility] 02-06-2023 09:41-0400 Heart rate 70 /min Dr. Albert Tripp Work Phone: [facility] 02-06-2023 09:41-0400 Respiratory rate 16 /min Dr. Albert Tripp Work Phone: [facility] 02-06-2023 09:41-0400 SaO2% (BldA) [Mass fraction] 100 % Dr. Albert Tripp Work Phone: [facility] 02-06-2023 09:41-0400 Systolic blood pressure 104 mm[Hg] Dr. Albert Tripp Work Phone: [facility] 02-06-2023 08:23-0400 Body height 170.[address] Albert Tripp Work Phone: [facility] 02-06-2023 08:23-0400 Body mass index (BMI) [Ratio] 21 kg/m2 Dr. Albert Tripp Work Phone: [facility] 02-06-2023 08:23-0400 Body weight 60.[address] Albert Tripp Work Phone: [facility] 12-23-2022 11:03-0400 Body mass index (BMI) [Ratio] 21.9 kg/m2 Dr. Albert Tripp Work Phone: [facility] 12-23-2022 11:03-0400 Body weight 63.[address] Albert Tripp Work Phone: [facility] Encounters Encounter Date Encounter Type Care Provider Facility Start: 10-11-2024 End: 10-11-[address] Garcia Tripp MD Work Phone: [facility] Work Phone: Start: 10-11-2024 End: 10-11-[address] Ana dAam MD -Laboratory, [place] Work Phone: Start: 10-11-2024 End: 10-11-2024 ambulatory Ana Adam Facility:[facility] Start: 10-08-2024 End: 10-08-[address] Garcia Tripp MD Work Phone: [facility] Work Phone: Start: 10-08-2024 End: 10-08-[address] Ana Adam MD -Laboratory, [place] Work Phone: Start: 10-08-2024 End: 10-08-2024 ambulatory Ana Adam Facility:[facility] Start: 09-27-2024 End: 09-27-[address] Garcia Tripp MD Work Phone: [facility] Work Phone: Start: 09-27-2024 End: 09-27-[address] Ana Adam MD -Outpatient Breast Imaging Work Phone: Start: 09-27-2024 End: 09-27-2024 ambulatory Ana Adam Facility:[facility] Start: 06-03-2024 End: 06-03-2024 ambulatory Garcia Tripp Facility:[facility] Start: 09-08-2023 End: 09-13-2023 ambulatory ANA ADAM MD Facility:B Start: 09-08-2023 End: 09-12-2023 Outreach Lab ANA ADAM MD [facility] Start: 08-25-2023 End: 08-25-2023 ambulatory [facility] Work Phone: Start: 08-25-2023 End: 08-25-2023 Patient encounter procedure [facility]-Outpatient Breast Imaging Work Phone: Start: 04-14-2023 End: 04-15-2023 ambulatory NONE PHYSICIAN Facility:B Start: 04-14-2023 End: 04-14-2023 Patient encounter procedure YOANDY HEATH APRN-CHILD NUTRITION ASSISTANT [facility] Start: 02-06-2023 Non-patient / Non-visit Dr. Albert Tripp Work Phone: [facility] Start: 02-06-2023 End: 02-06-2023 Admission to same day surgery center Dr. Albert Tripp Work Phone: [facility]-Endoscopy Work Phone: Start: 02-06-2023 End: 02-06-[address] Albert Tripp Work Phone: [facility] Work Phone: Start: 12-23-2022 Non-patient / Non-visit Dr. Albert Tripp Work Phone: [facility] Work Phone: Start: 09-08-2022 End: 09-08-2022 ambulatory [facility] Work Phone: Start: 09-08-2022 End: 09-08-2022 Patient encounter procedure [facility]-Laboratory, [place] Start: 06-02-2022 End: 06-02-2022 Patient encounter procedure [facility]-MRI - [facility] Start: 03-22-2022 End: 03-26-2022 Outreach Lab ANA ADAM MD [facility] Start: 03-22-2022 End: 03-22-2022 Patient encounter procedure ANA ADAM MD [facility] Procedures Date Procedure Procedure Detail Performing Clinician Start: 09-27-2024 Screening mammography Barbie Tripp MD Work Phone: Start: 08-25-2023 Screening mammography Start: 02-06-[address] Diony Tripp Work Phone: Start: 06-02-2022 MRI of bilateral marty asts with contrast Arthroscopic knee operation ANA ADAM MD H/O: kidney donation History of kidney donation Comment on above: Left 2010 Ligation of fallopia n tube ANA ADAM MD Live donor nephrectomy HERLINDA ADAM MD Plan of Treatment Date Care Activity Detail Author Start: 02-06-2023 Patient discharge [facility] Colonoscopy [facility] Patient referral [facility] Work Phone: Immunizations Immunization Date Immunization Notes Care Provider Fa anne 07-20-2021 SARS-CoV-2 (COVID-19 ) mRNA-1273 vaccine YOANDY HEATH ALUMINUM SHEET CUTTER-CHILD NUTRITION ASSISTANT [facility] 11-12-2020 SARS-CoV-2 (COVID-19 ) mRNA-1273 vaccine YOANDYARYA JANGON ALUMINUM SHEET CUTTER-CHILD NUTRITION ASSISTANT [facility] 10-15-2020 SARS-CoV-2 (COVID-19 ) mRNA-1273 vaccine YOANDY HEATH ALUMINUM SHEET CUTTER-CHILD NUTRITION ASSISTANT [facility] Payers Date Payer Category Payer Self-pay [id number] 2023 Unknown [id number] 2015 Private Health Insurance [facility] [id number] 1970 Unknown [id number] [id number] 1970 Unknown [id number] 2.16.8 [id number] Unknown [id number] 2.16.8 [id number] Unknown [id number] 2.16.8 [id number] Unknown [id number] 2.16.8 [id number] Unknown [id number] 2.16.8 [id number] Social History Date Type Detail Facility Start: 03-22-2022 End: 02-06-2023 Tobacco smoking status Never smoked tobacco (finding) [facility] Start: 1970 Sex Assigned At Female [facility] Start: 11-27-2020 End: 02-06-2023 Tobacco smoking status SDIS Unknown if ever smoked [facility] Start: 10-02-2024 End: 10-16-2024 Sex Female (finding) [facility] NEGATED: Highlighted row [facility] Goals Date Patient Goal Desired Activity /State Mental Status Date Assessment Result Facility 02-06-2023 Cognitive function Voice/Name [facility] Work Phone: Clinical Notes 03-22-2022 to 09-12-2023 Note Date & Type Note Facility 09-12-2023 Note The microscopic examination is performed, except in the case of Gross Only. [facility] 09-12-2023 Note The microscopic examination is performed, except in the case of Gross Only. [facility] 09-11-2023 Note The microscopic examination is performed, except in the case of Gross Only. [facility] 09-11-2023 Note The microscopic examination is performed, except in the case of Gross Only. [facility] 09-11-2023 Note The microscopic examination is performed, except in the case of Gross Only. [facility] 09-11-2023 Note The microscopic examination is performed, except in the case of Gross Only. [facility] 09-11-2023 Note The microscopic examination is performed, except in the case of Gross Only. [facility] 02-06-2023 History and physical note Note Date/Time February 06, 2023 8:08am [facility] Medical Records Department [address] [place] [address] History & Physical Exam 02/06/23804 MR#: [id number] Acct: [id number] Name: YOSELIN BAILEY Rep #[id number] : 1970 52 From: Peri Hudson MD PCP: Dr. Albert Tripp MD Status: [facility] Location: [place] [address] HPI - General General Date of Service: 02/06/23 HPI Narrative YOSELIN GOLD, is a 52 F who presents for a screening colonoscopy. Patient never had previous colonoscopy. Patient Nuys any family history of colon cancer. Patient denies any current abdominal pain/nausea/vomiting/reflux. Patient has bowel movements daily denies any blood. [facility] Medical History (Updated 02/02/23 @ 16:19 by Elsa Quijano) Abnormal mammogram of right breast Abnormal mammogram of right breast Abnormal ultrasound of breast Alcohol use Breast mass, right Non-smoker Post-menopausal Solitary right kidney Wears contact lenses Wears glasses Home Medications estradiol 0.045 mg-levonorgestrel 0.015 mg/24hr weekly transderm patch 1 patch transdermal QWEEK 12/23/22 [History Last Taken Unknown] multivitamin 1 tab PO DAILY 12/23/22 [History Last Taken Unknown] turmeric 400 mg capsule 400 mg PO DAILY 12/23/22 [History Last Taken Unknown] calcium carbonate 600 mg calcium (1,500 mg) tablet (Calcium) 1,200 mg PO DAILY 02/02/23 [History Last Taken Unknown] Allergy/AdvReac Type Severity Reaction Status Date / Time No Known Allergies Allergy Verified 02/06/23 08:09 Family History Father Cancer Skin Cancer Kidney disease Sister Kidney disease Grandfather Kidney disease Surgical History (Updated 02/02/23 @ 16:11 by Elas Quijano) History of endometrial ablation History of kidney donation Social History Smoking Status: Never smoker second hand exposure: No alcohol intake: current alcohol intake frequency: a few times a month substance use type: does not use caffeine: Yes what type of physical activity do you participate in: none frequency: does not exercise seatbelt use: always Past Medical/Surgical History Planned Operation Planned Operative Procedure/s: COLONOSCOPY Previous Hospitalizations/Surgeries HX Hospitalizations: No Any Problems With Anesthesia: No You/Your Family Experience Fever (Hyperthermia) With Anes: No Cholinesterase deficiency: No Cardiovascular Hx Hypertension: No Respiratory Hx Sleep Apnea: No Hx Respiratory Tract Infection/Cold (presently): No Do You Snore Loudly (louder than talking or can be heard): No Do You Often Feel Tired/ Fatigued/ Sleepy Dring Daytime?: No Has Anyone Observed You Stop Breathing During Sleep?: No Result (for STOP score): Negative Smoking Status: Never smoker Neurological Does patient have nerve stimulator: No Reproduction : No Allergies No Known Allergies Allergy (Verified 02/06/23 08:09) Discharge Is Pt Admitted From a Senior Living, or a Intermediate: No Who Could Help: FAMILY After D/C, Where Do you Plan to Go: Return Home Physical Exam Const alert, oriented x3 and no apparent distress HEENT normocephalic and head/scalp atraumatic Resp normal respiratory effort Cardio regular rate GI soft to palpation and non-tender; Negative for non-distended Palpation: Negative for guarding Extremity no clubbing, cyanosis or edema Neuro CN's II-XII intact bilaterally Psych mental status grossly normal Assessment & Plan Assessment/Plan (1) Encounter for screening for malignant neoplasm of colon: Surgery Risks - Colonoscopy I discussed with the patient the risks of the procedure: Yes Risks Include but are not Limited To: Risks include but are not limited to: Bleeding, perforation requiring further surgery, inability to complete colonoscopy requiring barium enema. 02/06/23817 <Electronically signed by Peri Hudson MD> Cosigner Signature (if applicable): CC: Dr. Albert Tripp MD; Dr. Peri Hudson MD~ Signed [facility] Work Phone: [phone] 230-821308-21-2023 Procedure [facility] 02-06-2023 Procedure [facility]10-07-2022 Note This Pap Test was successfully processed and evaluated with the assistance of the [facility] Test Imaging System. [facility] 10-07-2022 Note This Pap Test was successfully processed and evaluated with the assistance of the [facility] System. [facility] 10-07-2022 Note This Pap Test was successfully processed and evaluated with the assistance of the [facility]. [facility] 10-07-2022 Note This Pap Test was successfully processed and evaluated with the assistance of the [facility]. [facility] 10-07-2022 Note This Pap Test was successfully processed and evaluated with the assistance of the [facility] System. [facility] 10-07-2022 Note This Pap Test was successfully processed and evaluated with the assistance of the [facility] System. [facility] 10-07-2022 Note This Pap Test was successfully processed and evaluated with the assistance of the [facility]. [facility] 10-07-2022 Note This Pap Test was successfully processed and evaluated with the assistance of the [employer] [facility] System. [facility] 10-04-2022 Evaluation + Plan note Future Scheduled Tests Laboratory* Pathology Orthopedic Physical Therapist Request 03/22/22 Radiology* MA Mammo Screening Bilateral w/ Kun 03/22/22 * MRI Breast w/o Contrast Bilateral 03/22/22 [facility] Evaluation + Plan note Future Appointments Appointment Date:04/18/2023 09:30:00 AM Scheduled Provider:ANA ADAM MD Location:[facility] Appointment Type:[facility] Future Scheduled Tests Radiology* MRI Breast w/ + w/o Contrast Bilateral 04/19/22 [facility] Evaluation + Plan note Future Appointments Appointment Date:11/14/2023 08:45:00 AM Scheduled Provider:ANA ADAM MD Location:[facility] Appointment Type: OV Future Scheduled Tests Radiology* MA Mammo Screening Bilateral w/ Kun 08/03/23 [facility] Evaluation noteNo assessment information available [facility] Work Phone: Evaluation note* Diagnosis Onset Date Resolution Status Encounter for screening for malignant neoplasm of colo n acute [facility] Work Phone: Hospital course Narrative No data available for this section [facility] Hospital Discharge instructions No data available for this section [facility] Progress note No data available for this section [facility] Reason for referral (narrative)No reason for referral [facility] Work Phone: Chief Complaint and Reason for Visit Chief Complaint DENSE BREASTS Chief Complaint Amb Documentation Reason for Visit Encounter for screen ing for malignant neoplasm of colon Chief Complaint SCREENING Chief Complaint Admit Date SCREENING September 27, 2024 12: 14pm Chief Complaint Admit Date SCREENING September 27, 2024 12: 14pm RE-CHECK ESTRADIOL LEVEL October 11 4:14pm Family History No Family History Records Found Relationship Condition Age at Onset Recorded Date/T marito father Malignant neoplasm Unknown Kidney disorder Unknown sister Kidney disorder Unknown grandfather Kidney disorder Unknown Advance Directives No Advanced Directives Records Found Advance Directive Response Recorded Date/ Time Living Will No February 02 3 4:11pm Power of Midwife Practitioner No February 02, 023 4:11pm Summary Purpose Additional Source Comments Care Team (unrecognized sect ion and content) Care Team Related Persons Name: ANGELICA GOLD Address: [address] [place] [phone] Care Teams (unrecognized sec tion and content) Team Status: Active Member Role Status Dates Dr. Albert Tripp MD Family Provider Active Dr. Albert Tripp MD Primary Care Provider Activ e Team Status: Inactive Member Role Status Dates Dr. Albert Tripp MD Primary Care Provider Activ e Dr. Ana Adam MD Attending Provider, Referring Pr ovider Active Team Status: Inactive Member Role Status Dates Dr. Albert Tripp MD Primary Care Provider Activ e Dr. Kalyani Gardiner MD Attending Provider, Referri ng Provider Active Team Status: Active Member Role Status Dates Dr. Albert Tripp MD Primary Care Provider Activ e Annika Sher Attending Provider Active Team Status: Active Member Role Status Dates Dr. Albert Tripp MD Primary Care Provider, Refe rring Provider Active Dr. Peri Hudson MD Attending Provider, Other Pro vider Active Team Status: Inactive Member Role Status Dates Dr. Albert Tripp MD Primary Care Provider, Refe rring Provider Active Dr. ePri Hudson MD Attending Provider Active Team Status: Active Member Role Status Dates Dr. Garcia Tripp MD Primary Care Provider Acti ve Team Status: Inactive Member Role Status Dates Dr. Garcia Tripp MD Primary Care Provider Acti ve Start: September 27, 2024 End: September 27, 2024 Dr. Ana Adam MD Attending Provider Active Start: September 27, 2024 End: September 27, 2024 Dr. Ana Adam MD Referring Provider Active Start: September 27, 2024 End: September 27, 2024 Team Status: Inactive Member Role Status Dates Dr. Garcia Tripp MD Primary Care Provider Acti ve Start: October 08, 2024 End: October 08, 2024 Dr. Ana Adam MD Attending Provider Active Start: October 08, 2024 End: October 08, 2024 Dr. Ana Adam MD Referring Provider Active Start: October 08, 2024 End: October 08, 2024 Team Status: Active Member Role Status Dates Dr. Garcia Tripp MD Primary Care Provider Acti ve Start: October 11, 2024 Dr. Ana Adam MD Attending Provider Active Start: October 11, 2024 Dr. Ana Adam MD Referring Provider Active Start: October 11, 2024 Team Status: Inactive Member Role Status Dates Dr. Garcia Tripp MD Primary Care Provider Acti ve Start: October 11, 2024 End: October 11, 2024 Dr. Ana Adam MD Attending Provider Active Start: October 11, 2024 End: October 11, 2024 Dr. Ana Adam MD Referring Provider Active Start: October 11, 2024 End: October 11, 2024 Goals (unrecognized section and content) Goals may be documented in a n alternate section INFORMATION SOURCE (unrecogn ized section and content) DATE CREATED AUTHOR 09/16/2023 [facility] ([place]) DATE CREATED AUTHOR AUTHOR'S ORGANIZ ATION 12/12/2024 [facility] FOR RECORDS PERTAINING TO PATIENTS WHO ARE [...] BE BASED ON THE PRIMARY CLINICAL RECORDS. [employer] [facility]. provides no warranty or guarantee of the accuracy or completeness of information in this document.
[2025-03-07 07:08] LABS: ANTINUCLEAR ANTIBODIES DIRECT Negative (Negative)
== END | disposition home or self-care (01) ==
PROVIDERS: PCP Family Medicine; Referring Provider Family Medicine; Visit Provider Family Medicine
DX: Z13.220 Encounter for screening for lipoid disorders (principal); R76.8 Other specified abnormal immunological findings in serum; R53.83 Other fatigue
CPT/HCPCS: 36415; 80053; 80061; 82306; 82533; 82607; 82728; 83540; 84439; 84443; 85025; 85652; 86038; 86140; 86200; 86431